=== PATIENT | male | born 1975 | race Two or more races ===

== ENCOUNTER → 2020-03-13 12:32 | Outpatient (BNVA) | payer SELFPAY | PROVIDERS: PCP Nurse Practitioner Family; Visit Provider Student in an Organized Health Care Education/Training Program | DX: M25.512 Pain in left shoulder (principal); M25.511 Pain in right shoulder; G89.29 Other chronic pain; M25.50 Pain in unspecified joint; M79.7 Fibromyalgia; R26.89 Other abnormalities of gait and mobility; R29.6 Repeated falls; Z91.81 History of falling | CPT/HCPCS: 99214 ==

== ENCOUNTER 2021-04-10 09:18 | Outpatient (REF) | payer OTHER, SELFPAY ==
--- NOTE | ~2021-04-10 | MR_ITS ---
EXAMINATION: MR BRAIN WITHOUT AND WITH CONTRAST CLINICAL INFORMATION: Seizure disorder COMPARISON: None TECHNIQUE: Multiplanar, multisequence MRI of the brain was obtained before and after the intravenous administration of 10 mL Gadavist. Seizure protocol images are obtained. FINDINGS: No intracranial hemorrhage, tumors or acute infarcts are noted. A small number scattered supratentorial subcortical punctate T2 hyperintensities are noted. The largest focus measures 3 mm in dimension is present in the inferior right frontal lobe (series 5 image 16). No perivenular lesions are noted. These findings are of uncertain clinical significance as similar findings are a frequently encountered asymptomatic finding. Susceptibility weighted images reveal no evidence of acute or chronic hemorrhage within the brain parenchyma. The craniocervical junction cerebellar tonsils are normal in appearance. No suspicious marrow abnormalities. Grossly normal flow-related signal intensity within the major intrarenal vessels and dural sinuses. Coronal seizure protocol images demonstrate no abnormalities of the hippocampal formations. No walker matter heterotopia or evidence of neuronal migrational abnormalities identified. The orbits and globes are normal in appearance. No mastoid effusions. No abnormal enhancement of the brain parenchyma. MR/MR head/brain wo/w con IMPRESSION: -Small number of scattered nonspecific nonenhancing punctate supratentorial white matter foci (T2 hyperintensities) of uncertain clinical significance. Similar findings are frequent encountered asymptomatic findings. Unenhanced and IV contrast enhanced seizure protocol images the brain are otherwise normal.
== END 2021-04-10 09:19 | disposition home or self-care (01) ==
LOC: HO.MRI 09:18
PROVIDERS: PCP Physician Assistant Medical; Visit Provider Psychiatry & Neurology Neurology
DX: G40.909 Epilepsy, unspecified, not intractable, without status epilepticus (principal)
CPT/HCPCS: 70553; A9585

== ENCOUNTER → 2022-07-12 09:00 | Outpatient (BNVA) | payer OTHER, SELFPAY | PROVIDERS: PCP Internal Medicine; Visit Provider Psychiatry & Neurology Neurology | DX: R25.2 Cramp and spasm (principal); G47.10 Hypersomnia, unspecified; R06.83 Snoring | CPT/HCPCS: 99202 ==

== ENCOUNTER → 2022-08-19 19:30 | Outpatient (REF) | payer OTHER, SELFPAY | LOC: HO.SL 19:30 | PROVIDERS: Visit Provider Psychiatry & Neurology Neurology | DX: G47.33 Obstructive sleep apnea (adult) (pediatric) (principal); G47.61 Periodic limb movement disorder | CPT/HCPCS: 95810 ==

== ENCOUNTER 2022-10-05 07:57 | Outpatient (REF) | payer MEDICAID, SELFPAY ==
--- NOTE | 2022-10-05 08:00 | EEG_ITS ---
FINDINGS: Waking background activity consists of a well-defined moderate voltage 10 hertz posterior alpha frequency that is seen symmetrically and attenuates well with eye opening on low voltage fast frequencies predominate anteriorly. During sleep, symmetrical frontal central spindles develop over both hemispheres. Photic stimulation is without activation. Hyperventilation was omitted. No focal, lateralizing, or paroxysmal discharges are seen. IMPRESSION: This waking sleepy EEG is within normal limits MD ASHLIE Price/ADALBERTO / [phone]
== END 2022-10-05 07:58 | disposition home or self-care (01) ==
LOC: HO.NEURO 07:57
PROVIDERS: PCP Internal Medicine; Visit Provider Nurse Practitioner Family
DX: R56.9 Unspecified convulsions (principal); R25.2 Cramp and spasm
CPT/HCPCS: 95816

== ENCOUNTER 2023-02-02 08:55 | Outpatient (AMB) | payer MEDICAID, SELFPAY ==
[2023-02-02 09:00] VITALS: BP 120/72; PULSE 71; O2SAT 97; BMI 26.8
--- NOTE | 2023-02-02 09:00 | MHC.OFFVIS ---
Intake Vital Signs 02/02/23 09:00 Height 5 ft 8 in Weight 176 lb 8 oz BMI 26.8 BP 120/72 Blood Pressure Location Rt brachial Position Sitting Pulse 71 Pulse Source Pulse Oximeter Pulse Oximetry (%) 97 Oxygen Delivery Method Room Air Intake Visit Reasons: 3m follow up Seizure disorder-confirmed Intake Note: Pt presents as a 3 month f/u for seizure disorder. Classroom Monitor Required: No Allergies tramadol Allergy (Severe, Verified 02/02/23 09:04) Hallucinations Gadolinium-Containing Contrast Medi Allergy (Mild, Verified 02/02/23 09:04) Rash gabapentin Adverse Reaction (Severe, Verified 02/02/23 09:04) agressive behavior Medication List - Last Reconciled 02/02/23 by Emerald Murray MD famotidine (Pepcid) 20 mg PO BEDTIME PRN hydroxyzine HCl 50 mg PO BEDTIME lidocaine 4% 1 patch topical DAILY PRN magnesium oxide 400 mg PO BEDTIME oxcarbazepine 1 tab qama nd 2 tabs qhs orally 2 times a day; HPI HPI Comments History of Present Illness Details 47y/o male comes for follow up of seizures after 6 months. His describes that the episodes of seizures are at night and generalized body cramping lasting for 30seconds or less. He wakes up after the episode and is in pain and confused. Since he was started on oxcarbamazepine his episode shave decreased in frequency and intensity 2/week and teher are weeks without episode. His sleep study showed an episode with ictal appearing waveforms during the epsidoe. Mild sleep apnea AHI 5/hr. [facility] Medical History (Updated 02/02/23 @ 09:19 by Emerald Murray MD) Anxiety Cocaine abuse Depression Heroin abuse Hypersomnia Marijuana abuse Nocturnal muscle cramp Nocturnal paroxysmal dystonia Snoring Spina bifida Surgical History History of appendectomy Family History Father Stomach cancer Prostate CA Diabetes Social History Household Members: Spouse Alcohol intake: never Patient Tobacco Use Status: Never used Tobacco Substance Use Type: Marijuana Physical Exam Vital Signs: Last Vital Signs Pulse 71 02/02/23 09:00 BP 120/72 02/02/23 09:00 Pulse Ox 97 02/02/23 09:00 Oxygen Delivery Method Room Air 02/02/23 09:00 BMI result Body Mass Index 26.8 Const General: cooperative, healthy appearing and comfortable Nutritional Appearance: average body habitus Orientation/consciousness: patient oriented x3 Limitations: no limitations HEENT Head: Yes normal to inspection and Yes normocephalic Eyes Pupils: Equal, round and reactive pupils present Neuro General: patient oriented x3, gait normal, tone normal, moves all extremities and no focal motor deficits Cranial nerves: Yes Facial sensation intact/muscles of mastication intact, Yes Equal, round and reactive pupils present, Yes Bilaterally intact EOM present, Yes Nystagmus not present, Yes Normal facial strength present, Yes Midline tongue present, Yes Symmetric palate elevation present and Yes Ability to bilaterally elevate shoulders present Cognition (Neuro): normal cognition Gait exam (Neuro): Normal gait present Motor exam (neuro): 5/5 motor strength present throughout Deep tendon reflexes (DTR's): Right triceps reflex intensity grade: 1+, Left triceps reflex intensity grade: 1+, Rt Biceps (C5, C6): 1+, Left biceps reflex intensity grade: 1+, Right brachioradialis reflex intensity grade: 1+, Left brachioradialis reflex intensity grade: 1+, Right patellar reflex intensity grade: 2+ and Left patellar reflex intensity grade: 2+ Coordination: [id number] test normal Psych Appearance: grossly normal Assessment & Plan Assessment & Plan (1) Nocturnal paroxysmal dystonia: Comment: PSG - showe rush episode with ictal wave forms and patient responded to oxcarbamazepine Code(s): G47.8 - Other sleep disorders (2) Obstructive sleep apnea: Comment: mild Code(s): G47.33 - Obstructive sleep apnea (adult) (pediatric) Plan Increase trileptal 150mg qam and 300mg qhs - discussed side effects and compliance AVoid supine sleep. will consider cloanzepam . Patient has severe intolerance to gabapentin NO DRIVING Orders: Orders Comprehensive Met. Panel 02/02/23 G47.8 - Other sleep disorders Complete Blood Count Auto Diff 02/02/23 G47.8 - Other sleep disorders Medications: Changed From oxcarbazepine 150 mg PO BID 60 tabs 6RF To oxcarbazepine 1 tab qama nd 2 tabs qhs orally 2 times a day; 90 tabs 6RF Coding Level of Care Code Est Pt Level 4 (55707) Diagnoses Nocturnal paroxysmal dystonia G47.8 Obstructive sleep apnea G47.33
== END 2023-02-02 09:25 | disposition home or self-care (01) ==
PROVIDERS: Visit Provider Psychiatry & Neurology Neurology
DX: G47.8 Other sleep disorders (principal); G47.33 Obstructive sleep apnea (adult) (pediatric)
CPT/HCPCS: 99214

== ENCOUNTER → 2023-02-02 08:55 | Outpatient (BNVA) | payer MEDICAID, SELFPAY | PROVIDERS: Visit Provider Psychiatry & Neurology Neurology | DX: G47.8 Other sleep disorders (principal); G47.33 Obstructive sleep apnea (adult) (pediatric) | CPT/HCPCS: 99212 ==

== ENCOUNTER 2023-04-11 13:16 | Outpatient (AMB) | payer OTHER, SELFPAY ==
--- NOTE | 2023-04-11 13:50 | A.OFFVIS_ITS ---
Intake Vital Signs 04/11/23 13:52 Height 5 ft 8 in Weight 195 lb BMI 29.6 BP 122/80 Blood Pressure Location Rt brachial Position Sitting Pulse 78 Pulse Source Pulse Oximeter Pulse Oximetry (%) 99 Oxygen Delivery Method Room Air Intake Visit Reasons: 2m follow up Seizure disorder/Confirmed Intake Note: Patient presents for 2 month follow up seizure.Patient states 'I've been having less attacks but I find since the medication dosage increased I've urinating a lot in the morning. Allergies tramadol Allergy (Severe, Verified 04/11/23 13:54) Hallucinations Gadolinium-Containing Contrast Medi Allergy (Mild, Verified 04/11/23 13:54) Rash gabapentin Adverse Reaction (Severe, Verified 04/11/23 13:54) agressive behavior Medication List - Last Reconciled 04/11/23 by Goyo Carter CNP famotidine (Pepcid) 20 mg PO BEDTIME PRN hydroxyzine HCl 50 mg PO BEDTIME lidocaine 4% 1 patch topical DAILY PRN magnesium oxide 400 mg PO BEDTIME oxcarbazepine 1 tab qama nd 2 tabs qhs orally 2 times a day; HPI HPI Comments History of Present Illness Details 47 y/o male comes with his for foll ow up of seizures. Pt reports that his seizure frequency has decreased a lot, had only one episode since the last visit (02/02/23). The oxcarbazepine dosage was increased to 150 mg qAM and 300 mg qHS. His describes that the episodes of seizures are at night and generalized body cramping lasting for 30 seconds or less. He wakes up after the episode and is in pain and confused. His sleep study showed an episode with ictal appearing waveforms during the episode. Mild sleep apnea AHI 5/hr. Pt reports that he has more frequent urination after his medication dosage increased. The sodium level (02/03/23) was 142 and had a repeat labs done last week and the result is pending. Pt states that he does not drive. [facility] Medical History (Updated 02/02/23 @ 09:19 by Emerald Murray MD) Nocturnal paroxysmal dystonia Hypersomnia Snoring Nocturnal muscle cramp Anxiety Depression Marijuana abuse Cocaine abuse Heroin abuse Spina bifida Surgical History History of appendectomy Family History Father Stomach cancer Prostate CA Diabetes Social History Household Members: Spouse Alcohol intake: never Patient Tobacco Use Status: Never used Tobacco Substance Use Type: Marijuana Review of Systems Const All systems reviewed & are unremarkable except as noted in HPI and below Physical Exam Vital Signs: Last Vital Signs Pulse 78 04/11/23 13:52 BP 122/80 04/11/23 13:52 Pulse Ox 99 04/11/23 13:52 Oxygen Delivery Method Room Air 04/11/23 13:52 BMI result Body Mass Index 29.6 Const General: cooperative, healthy appearing and comfortable Nutritional Appearance: average body habitus Orientation/consciousness: patient oriented x3 Limitations: no limitations HEENT Head: Yes normal to inspection and Yes normocephalic Eyes Pupils: Equal, round and reactive pupils present Neuro General: patient oriented x3, gait normal, tone normal, moves all extremities and no focal motor deficits Cranial nerves: Yes Facial sensation intact/muscles of mastication intact, Yes Equal, round and reactive pupils present, Yes Bilaterally intact EOM present, Yes Nystagmus not present, Yes Normal facial strength present, Yes Midline tongue present, Yes Symmetric palate elevation present and Yes Ability to bilaterally elevate shoulders present Cognition (Neuro): normal cognition Gait exam (Neuro): Normal gait present Motor exam (neuro): 5/5 motor strength present throughout Deep tendon reflexes (DTR's): Right triceps reflex intensity grade: 1+, Left triceps reflex intensity grade: 1+, Rt Biceps (C5, C6): 1+, Left biceps reflex intensity grade: 1+, Right brachioradialis reflex intensity grade: 1+, Left brachioradialis reflex intensity grade: 1+, Right patellar reflex intensity grade: 2+ and Left patellar reflex intensity grade: 2+ Coordination: [id number] test normal Psych Appearance: grossly normal Assessment & Plan Assessment & Plan (1) Nocturnal paroxysmal dystonia: Comment: PSG - showe rush episode with ictal wave forms and patient responded to oxcarbamazepine Code(s): G47.8 - Other sleep disorders (2) Obstructive sleep apnea: Comment: mild Code(s): G47.33 - Obstructive sleep apnea (adult) (pediatric) Plan Continue to take trileptal 150 mg qAM and 300mg qHS. Stressed compliance. Will f/u of the lab result. Avoid supine sleep. Patient has severe intolerance to gabapentin NO DRIVING Coding Level of Care Code Est Pt Level 3 (10196) Diagnoses Nocturnal paroxysmal dystonia G47.8 Obstructive sleep apnea G47.33
[2023-04-11 13:52] VITALS: BP 122/80; PULSE 78; O2SAT 99; BMI 29.6
== END 2023-04-11 14:18 | disposition home or self-care (01) ==
PROVIDERS: PCP Internal Medicine; Visit Provider Nurse Practitioner Family
DX: G47.8 Other sleep disorders (principal); G47.33 Obstructive sleep apnea (adult) (pediatric)
CPT/HCPCS: 99213

== ENCOUNTER → 2023-04-11 13:16 | Outpatient (BNVA) | payer OTHER, SELFPAY | PROVIDERS: PCP Internal Medicine; Visit Provider Nurse Practitioner Family | DX: G47.8 Other sleep disorders (principal); G47.33 Obstructive sleep apnea (adult) (pediatric); Z79.899 Other long term (current) drug therapy | CPT/HCPCS: 99212 ==

== ENCOUNTER 2023-07-14 09:46 | Outpatient (AMB) | payer OTHER, SELFPAY ==
--- NOTE | 2023-07-14 11:00 | A.OFFVIS_ITS ---
Intake Vital Signs 07/14/23 11:07 Height 5 ft 8 in Weight 208 lb 6 oz BMI 31.7 BP 122/80 Blood Pressure Location Lt brachial Position Sitting Pulse 67 Pulse Source Pulse Oximeter Pulse Oximetry (%) 98 Oxygen Delivery Method Room Air Intake Visit Reasons: 3 mo f/u Seizure - CONF Intake Note: Patient presents for 3 month f/u. still a lot of migraine Allergies tramadol Allergy (Severe, Verified 07/14/23 11:05) Hallucinations Gadolinium-Containing Contrast Medi Allergy (Mild, Verified 07/14/23 11:05) Rash gabapentin Adverse Reaction (Severe, Verified 07/14/23 11:05) agressive behavior Medication List - Last Reconciled 07/14/23 by Goyo Carter CNP famotidine (Pepcid) 20 mg PO BEDTIME PRN hydroxyzine HCl 50 mg PO BEDTIME lidocaine 4% 1 patch topical DAILY PRN magnesium oxide 400 mg PO BEDTIME nortriptyline 10 mg PO BEDTIME oxcarbazepine 1 tab qama nd 2 tabs qhs orally 2 times a day; HPI HPI Comments History of Present Illness Details 48 y/o male comes with his for foll ow up of seizures. Pt reports that No breakthrough seizure since the last visit (04/2023). He had one episode of seizure before April. He is compliant his mediation, oxcarbazepine 150 mg qAM and 300 mg qHS. His describes that the episodes of seizures are at night and generalized body cramping lasting for 10 seconds or less. He wakes up after the episode and is in pain and confused. His sleep study showed an episode with ictal appearing waveforms during the episode. Mild sleep apnea AHI 5/hr, not on CPAP. Pt reports he sleeps well. Lab result reviewed, WNL. Pt states that he does not drive, his jamilah. [facility] Medical History (Updated 02/02/23 @ 09:19 by Emerald Murray MD) Nocturnal paroxysmal dystonia Hypersomnia Snoring Nocturnal muscle cramp Anxiety Depression Marijuana abuse Cocaine abuse Heroin abuse Spina bifida Surgical History History of appendectomy Family History Father Stomach cancer Prostate CA Diabetes Social History Household Members: Spouse Alcohol intake: never Patient Tobacco Use Status: Never used Tobacco Substance Use Type: Marijuana Review of Systems Const All systems reviewed & are unremarkable except as noted in HPI and below Physical Exam Vital Signs: Last Vital Signs Pulse 67 07/14/23 11:07 BP 122/80 07/14/23 11:07 Pulse Ox 98 07/14/23 11:07 Oxygen Delivery Method Room Air 07/14/23 11:07 BMI result Body Mass Index 31.7 Const General: cooperative, healthy appearing and comfortable Nutritional Appearance: average body habitus Orientation/consciousness: patient oriented x3 Limitations: no limitations HEENT Head: Yes normal to inspection and Yes normocephalic Eyes Pupils: Equal, round and reactive pupils present Neuro General: patient oriented x3, gait normal, tone normal, moves all extremities and no focal motor deficits Cranial nerves: Yes Facial sensation intact/muscles of mastication intact, Yes Equal, round and reactive pupils present, Yes Bilaterally intact EOM present, Yes Nystagmus not present, Yes Normal facial strength present, Yes Midline tongue present, Yes Symmetric palate elevation present and Yes Ability to bilat erally elevate shoulders present Cognition (Neuro): normal cognition Gait exam (Neuro): Normal gait present Motor exam (neuro): 5/5 motor strength present throughout Deep tendon reflexes (DTR's): Right triceps reflex intensity grade: 1+, Left triceps reflex intensity grade: 1+, Rt Biceps (C5, C6): 1+, Left biceps reflex intensity grade: 1+, Right brachioradialis reflex intensity grade: 1+, Left brachioradialis reflex intensity grade: 1+, Right patellar reflex intensity grade: 2+ and Left patellar reflex intensity grade: 2+ Coordination: [id number] test normal Psych Appearance: grossly normal Assessment & Plan Assessment & Plan (1) Nocturnal paroxysmal dystonia: Comment: PSG - showe rush episode with ictal wave forms and patient responded to oxcarbamazepine Code(s): G47.8 - Other sleep disorders (2) Obstructive sleep apnea: Comment: mild Code(s): G47.33 - Obstructive sleep apnea (adult) (pediatric) Plan Continue to take trileptal 150 mg qAM and 300mg qHS. Stressed compliance. Avoid supine sleep. Patient has severe intolerance to gabapentin. NO DRIVING Coding Level of Care Code Est Pt Level 3 (25739) Diagnoses Nocturnal paroxysmal dystonia G47.8 Obstructive sleep apnea G47.33
[2023-07-14 11:07] VITALS: BP 122/80; PULSE 67; O2SAT 98; BMI 31.7
== END 2023-07-14 11:24 | disposition home or self-care (01) ==
PROVIDERS: PCP Internal Medicine; Visit Provider Nurse Practitioner Family
DX: G47.8 Other sleep disorders (principal); G47.33 Obstructive sleep apnea (adult) (pediatric)
CPT/HCPCS: 99213

== ENCOUNTER → 2023-07-14 09:46 | Outpatient (BNVA) | payer MEDICAID, SELFPAY | PROVIDERS: PCP Internal Medicine; Visit Provider Nurse Practitioner Family | DX: G47.33 Obstructive sleep apnea (adult) (pediatric) (principal); G47.8 Other sleep disorders | CPT/HCPCS: 99212 ==

== ENCOUNTER 2023-10-20 12:38 | Outpatient (AMB) | payer MEDICAID, SELFPAY ==
--- NOTE | 2023-10-20 12:44 | MHC.OFFVIS ---
Vital Signs 10/20/23 12:45 Height 5 ft 8 in Weight 208 lb BMI 31.6 BP 128/88 Blood Pressure Location Rt brachial Position Sitting Pulse 77 Pulse Source Pulse Oximeter Pulse Oximetry (%) 98 Oxygen Delivery Method Room Air Intake Visit Reasons: 6m f/u Seizure Intake Note: Patient presents for 6 month follow up seizure. Patient having a lot of headaches lately to the point he's bending over in pain even straining in the bathroom he gets light headed. Allergies tramadol Allergy (Severe, Verified 10/20/23 12:54) Hallucinations Gadolinium-Containing Contrast Medi Allergy (Mild, Verified 10/20/23 12:54) Rash gabapentin Adverse Reaction (Severe, Verified 10/20/23 12:54) agressive behavior Medication List - Last Reconciled 10/20/23 by LIZZETH Chua famotidine (Pepcid) 20 mg PO BEDTIME PRN hydroxyzine HCl 50 mg PO BEDTIME lidocaine 4% 1 patch topical DAILY PRN magnesium oxide 400 mg PO BEDTIME nortriptyline 10 mg PO BEDTIME oxcarbazepine 1 tab qama nd 2 tabs qhs orally 2 times a day; HPI Comments Details: 48-yr-old male presents for f/u visit, accompanied by his partner. Pt reports he is having a new headache triggered by having a bowel movement. This started out of the blue 9 days ago. Pt was having a BM, when he felt a swelling pressure building up into a pounding severe headache- like he had been hit) from the parietal region and into bilateral temples, more severe on the right. He states he just had to close his eyes and the attcak a/w mild photopphobia, off-balance/dizziness, blurry vision, horizontal diplopia. Post-attack, he felt more tired. The headache peaked to severity within 30-60 seconds and lasts 3-5 minutes. He has had 6 of these attacks in the last 9 days. All attacks triggered by having a BM or sexual activity. He did not seek medical attention for this. H ehas a h/o headache- but has never had a headache like this before. He has noticed bilateral tinnitus- sound like a plan a plane passing- started 3-4 weeks ago. Pt states he had a GI illness 2 weeks ago- but no fever, self-resolved. Denies recent fevers, accidents, right lateral and medial chest pain upon palpation, usual SOB. Sometimes uses marijuana prn for fibromyalgia pain- states there was no change in his marijuana or supplier. His last seizure-like episode was 2 days ago. He is having 6 episodes per month. The seizures are shorter than they used to be. He used to have daily seizures. [facility] Medical History (Updated 10/20/23 @ 15:25 by LIZZETH Chua) Nocturnal paroxysmal dystonia Hypersomnia Snoring Nocturnal muscle cramp Anxiety Depression Marijuana abuse Cocaine abuse Heroin abuse Spina bifida Surgical History History of appendectomy Family History Father Stomach cancer Prostate CA Diabetes Social History Household Members: Spouse Alcohol intake: never Patient Tobacco Use Status: Never used Tobacco Substance Use Type: Marijuana Physical Exam Vital Signs: Last Vital Signs Pulse 77 10/20/23 12:45 BP 128/88 10/20/23 12:45 Pulse Ox 98 10/20/23 12:45 Oxygen Delivery Method Room Air 10/20/23 12:45 BMI result Body Mass Index 31.6 Const General: cooperative and no acute distress Orientation/consciousness: patient oriented x3 Resp Effort & Inspection: normal respiratory effort and able to speak in complete sentences Auscultation: clear to auscultation bilaterally Cardio Rate: regular rate Rhythm: regular rhythm Heart sounds: S1 normal heart sound present and S2 normal heart sound present Peripheral pulses: radial pulses present bilateral 2+ Neuro Other: EOM elicits mild dizziness Color perception intact. General: patient oriented x3 Cranial nerves: Yes CN's II-XII intact bilaterally (w/ exception of very mild facial asymmetry- chronic per old photos) Cognition (Neuro): normal cognition Psych Appearance: grossly normal Mental Status: mental status grossly normal Speech and movement: Normal speech and movement present Affect: normal affect Attitude: cooperative Assessment & Plan Assessment & Plan (1) Thunderclap headache: Comment: new onset started 9 days ago- triggered by BM and sexual activity. DDx arterial dissection, RCVS, intracranial stenosis/thrombosis/ vasculitis, infection. Code(s): G44.53 - Primary thunderclap headache Category: Medical (2) Nocturnal muscle cramp: Comment: episodic with change in mental status - ? frontal seizures( the episodes are too short ), ? paroxysmal dyskinesia Code(s): R25.2 - Cramp and spasm Category: Medical (3) Nocturnal paroxysmal dystonia: Comment: PSG - showe rush episode with ictal wave forms and patient responded to oxcarbamazepine Code(s): G47.8 - Other sleep disorders Category: Medical Plan Pt advised to go to ER to evaluate new onset thunderclap type headache to rule-out secondary CV etiologies, pt declines. Advised if he has another attack while the work-up below is pending, he should go to the ER. Avoid heavy lifting or sexual activity. Pt advised to undergo Labs- pt will do today Stat CT Head Stat CTA Head and Neck Stat/urgent Brain MRI w/wo Upon review of above- consider LP. Continue Oxcarbazepine. Case discussed w/ Dr Emerald Murray. f/u upon review of above. Orders: Orders CT head for stroke Today G44.53 - Primary thunderclap headache, G47.10 - Hypersomnia, unspecified, G47.8 - Other sleep disorders, R56.9 - Unspecified convulsions CT angio head neck stroke Today G44.53 - Primary thunderclap headache, G47.10 - Hypersomnia, unspecified, G47.8 - Other sleep disorders, R56.9 - Unspecified convulsions Erythrocyte Sedimentation Rate Today G44.53 - Primary thunderclap headache, G47.10 - Hypersomnia, unspecified, G47.8 - Other sleep disorders, R56.9 - Unspecified convulsions TSH reflex Free T4 Today G44.53 - Primary thunderclap headache, G47.10 - Hypersomnia, unspecified, G47.8 - Other sleep disorders, R56.9 - Unspecified convulsions STEVEN Reflex Titer and Pattern Today G44.53 - Primary thunderclap headache, G47.10 - Hypersomnia, unspecified, G47.8 - Other sleep disorders, R56.9 - Unspecified convulsions Rheumatoid Factor Today G44.53 - Primary thunderclap headache, G47.10 - Hypersomnia, unspecified, G47.8 - Other sleep disorders, R56.9 - Unspecified convulsions MR head/brain wo/w con Today G44.53 - Primary thunderclap headache, G47.10 - Hypersomnia, unspecified, G47.8 - Other sleep disorders, R56.9 - Unspecified convulsions Complete Blood Count Auto Diff Today G44.53 - Primary thunderclap headache, G47.10 - Hypersomnia, unspecified, G47.8 - Other sleep disorders, R56.9 - Unspecified convulsions Comprehensive Met. Panel Today G44.53 - Primary thunderclap headache, G47.10 - Hypersomnia, unspecified, G47.8 - Other sleep disorders, R56.9 - Unspecified convulsions CRP High Sensitivity Today G44.53 - Primary thunderclap headache, G47.10 - Hypersomnia, unspecified, G47.8 - Other sleep disorders, R56.9 - Unspecified convulsions Coding Level of Care Code Est Pt Level 4 (93835) Diagnoses Thunderclap headache G44.53 Nocturnal muscle cramp R25.2 Nocturnal paroxysmal dystonia G47.8
[2023-10-20 12:45] VITALS: BP 128/88; PULSE 77; O2SAT 98; BMI 31.6
== END 2023-10-20 14:03 | disposition home or self-care (01) ==
PROVIDERS: Absent Provider Nurse Practitioner Family; PCP Internal Medicine; Visit Provider Nurse Practitioner Family
DX: G44.53 Primary thunderclap headache (principal); R25.2 Cramp and spasm; G47.8 Other sleep disorders
CPT/HCPCS: 99214

== ENCOUNTER → 2023-10-20 12:38 | Outpatient (BNVA) | payer MEDICAID, SELFPAY | PROVIDERS: Absent Provider Nurse Practitioner Family; PCP Internal Medicine; Visit Provider Nurse Practitioner Family | DX: G44.53 Primary thunderclap headache (principal); G47.8 Other sleep disorders; R25.2 Cramp and spasm | CPT/HCPCS: 99212 ==

== ENCOUNTER 2023-10-20 14:08 | Outpatient (REF) | payer MEDICAID, SELFPAY ==
[2023-10-20 19:53] LABS: MANUAL DIFF FLAG NO
[2023-10-20 19:57] LABS: Basophils Percent Auto 0.3 % (0-2); Eosinophils Absolute Auto 0.3 X10*3/uL (0.0-0.4); Eosinophils Percent Auto 2.6 % (0-4); Hematocrit 48.2 % (42.0-52.0); Hemoglobin 15.9 g/dl (14.0-18.0); Imm Gran Abs Auto 0.06 X10*3/uL (0.00-0.03); Imm Gran Pct Auto 0.5 % (0.0-0.4); Lymphocytes Absolute Auto 1.2 X10*3/uL (1.2-4.9); Lymphocytes Percent Auto 10.4 % (20-40); Mean Corpuscular Hemoglobin 26.3 pg (27.0-33.0); Mean Corpuscular Volume 79.8 fL (80.0-98.0); Mean Platelet Volume 11.5 fL (9.4-12.4); Monocytes Absolute Auto 1.1 X10*3/uL (0.1-1.2); Monocytes Percent Auto 9.2 % (2-11); Neutrophils Absolute Auto 9.2 x10*3/uL (2.0-8.3); Platelet Count 244 X10*3/uL (160-400); Red Blood Count 6.04 X10*6/uL (4.60-5.80); Red Cell Distribution Width 14.9 % (11.0-16.0); White Blood Count 11.9 X10*3/uL (4.8-10.8)
[2023-10-20 20:12] LABS: Alanine Aminotransferase 35 U/L (0-40); Albumin Level 4.8 g/dL (3.5-5.0); Alkaline Phosphatase 93 U/L (39-117); Anion Gap 13 (12-20); Aspartate Amino Transferase 31 U/L (5-37); Bilirubin Total 0.5 mg/dL (0.0-1.0); Blood Urea Nitrogen 14 mg/dL (9-16); Calcium 9.5 mg/dL (8.4-10.2); Carbon Dioxide 22 mmol/L (22-29); Chloride 106 mmol/L (96-108); Estimated Glomerular Filt Rate > 60; Glucose Random 92 mg/dL (60-115); Potassium 4.1 mmol/L (3.3-5.1); Sodium 137 mmol/L (135-145); Total Protein 8.1 g/dL (6.5-8.0)
[2023-10-20 20:19] LABS: Rheumatoid Factor < 13.0 IU/mL (<15.0)
[2023-10-20 20:26] LABS: TSH reflex Free T4 0.66 uIU/mL (0.32-4.0)
[2023-10-20 20:47] LABS: Erythrocyte Sedimentation Rate 2 MM/HR (0-15)
[2023-10-24 14:19] LABS: CRP High Sensitivity 11.9 mg/L
[2023-10-25 13:48] LABS: Anti Nuclear Antibody Screen NEGATIVE (NEGATIVE)
== END 2023-10-20 14:09 | disposition home or self-care (01) ==
LOC: HO.HKASLDS 14:08
PROVIDERS: Visit Provider Nurse Practitioner Family
DX: G44.53 Primary thunderclap headache (principal); R56.9 Unspecified convulsions; G47.8 Other sleep disorders; G47.10 Hypersomnia, unspecified
CPT/HCPCS: 36415; 80053; 84443; 85025; 85652; 86038; 86141; 86431; 99212

== ENCOUNTER 2023-10-28 09:11 | Outpatient (REF) | payer MEDICAID, SELFPAY ==
--- NOTE | ~2023-10-28 | MR_ITS ---
EXAMINATION: MR BRAIN WITHOUT AND WITH CONTRAST CLINICAL INFORMATION: thunderclap headache COMPARISON: MRI brain on 04/10/2021 TECHNIQUE: Multiplanar, multisequence MRI of the brain was obtained before and after the intravenous administration of 10 mL Gadavist. FINDINGS: No acute intracranial hemorrhage or infarct. Several scattered periventricular and deep white matter T2/FLAIR hyperintensities. No abnormal intraparenchymal enhancement. No midline shift or hydrocephalus. No acute extra-axial fluid collections. The osseous structures are unremarkable. The pituitary gland, pineal gland and remaining midline structures are unremarkable. No orbital pathology. The paranasal sinuses and mastoid air cells are clear. MR/MR head/brain wo/w con IMPRESSION: -No acute intracranial abnormalities. -Nonspecific scattered periventricular and deep white matter T2/FLAIR hyperintensities.
[2023-10-28] MEDS: gadobutroL 10 ML VIAL IVPUSH (10:44)
== END 2023-10-28 09:12 | disposition home or self-care (01) ==
LOC: HO.MRI 09:11
PROVIDERS: PCP Internal Medicine; Visit Provider Nurse Practitioner Family
DX: G44.53 Primary thunderclap headache (principal); R56.9 Unspecified convulsions; G47.8 Other sleep disorders; G47.10 Hypersomnia, unspecified
CPT/HCPCS: 70553; A9585

== ENCOUNTER 2023-11-17 11:09 | Outpatient (REF) | payer MEDICAID, SELFPAY ==
--- NOTE | ~2023-11-17 | CT_ITS ---
CT ANGIOGRAM NECK WITH CONTRAST CT ANGIOGRAM BRAIN WITH CONTRAST CLINICAL INFORMATION: Primary thunderclap headache COMPARISON: None. TECHNIQUE: Test bolus sequences followed by intravenous administration 70 mL of Omnipaque 350. Helical imaging was performed in the axial plane from the thoracic inlet to the skull vertex. Delayed postcontrast imaging of the head was also performed. The data was processed at the fish technologist workstation for generation of MIP sequences. Angled MIPs and volume rendered reformatted images were also generated at an offline 3D workstation under concurrent supervision. Stenoses are assessed in accordance with NASCET criteria unless otherwise indicated. This CT examination was performed using dose optimization techniques as appropriate, variously including the following: *Automated exposure control *Adjustment of mA and/or kV according to patient size (this includes techniques or standardized protocols for targeted exams where dose is matched to indication/reason for exam; i.e. extremities or head) *Use of iterative reconstruction technique FINDINGS: BRAIN: [There is no intracranial hemorrhage, hydrocephalus, extra-axial surface collection, midline shift, or other herniation pattern. Somers to white matter differentiation is diffusely maintained without evidence of an evolved acute territorial infarct. The basilar cisterns are preserved. No significant soft tissue abnormality. No acute osseous abnormality. The paranasal sinuses and the mastoid air cells are well aerated.] CERVICAL SOFT TISSUES AND LUNG APICES: There are a few nonspecific coarse calcifications within the thyroid. No significant soft tissue findings within the neck. Imaged upper lungs are clear. No acute osseous findings. NECK CTA: [There is a classic 3 vessel configuration of the aortic arch. Proximal arch vessels are non-stenotic. The vertebral arteries are codominant. No significant ostial stenosis is visualized on either side. Both vertebral arteries are widely patent throughout their extracranial cervical course. Both common and internal carotid arteries are normal in course and caliber.] BRAIN CTA: [There is normal opacification of major intracranial arteries. No focal flow-limiting stenosis nor discrete proximal large artery occlusion. No aneurysm. Timing of the contrast bolus allows assessment of the major dural venous sinuses, which all opacify normally] CT/CT angio head neck IMPRESSION: Unremarkable CTA of the head and neck.
[2023-11-17] MEDS: iohexoL 350 MG/ML 100 ML INFUS..BTL 70 ML IV (11:48)
== END 2023-11-17 11:10 | disposition home or self-care (01) ==
LOC: HO.CT 11:09
PROVIDERS: PCP Internal Medicine; Visit Provider Nurse Practitioner Family
DX: G44.53 Primary thunderclap headache (principal); R56.9 Unspecified convulsions; G47.8 Other sleep disorders
CPT/HCPCS: 70496; 70498; Q9967

== ENCOUNTER 2024-05-10 12:46 | Outpatient (AMB) | payer MEDICAID, SELFPAY ==
--- NOTE | 2024-05-10 13:00 | A.OFFVIS_ITS ---
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: No Accompanied by: Spouse Allergies tramadol Allergy (Severe, Verified 05/10/24 13:04) Hallucinations Gadolinium-Containing Contrast Medi Allergy (Mild, Verified 05/10/24 13:04) Rash gabapentin Adverse Reaction (Severe, Verified 05/10/24 13:04) agressive behavior Medication List - Last Reconciled 05/10/24 by LIZZETH Chua cyclobenzaprine 5 - 10 mg (1 - 2 x 5 mg) PO BID PRN 30 days famotidine (Pepcid) 20 mg PO BEDTIME PRN hydroxyzine HCl 50 mg PO BEDTIME lidocaine 4% 1 patch topical DAILY PRN magnesium oxide 400 mg PO BEDTIME oxcarbazepine 300 mg (2 x 150 mg) PO BEDTIME 30 days riboflavin (vitamin B2) 400 mg PO DAILY 30 days sumatriptan succinate 50 - 100 mg orally at onset of headache, may repeat in 2 hrs PRN; max 2 tabs per day or 4 tabs/week (may take with Tylenol) 30 days topiramate 1 tab bid x's 2 weeks, then 2 tabs bid orally 2 times a day; 30 days Do you need a note to return to daycare/school/sports/work: No HPI Comments Details: 49-yr-old male presents for f/u visit for seizure and headache. Patient is ac companied by his partner. Since the last visit, patient underwent brain MRI and follow-up brain MRA which were unremarkable. He reports that his headaches are better. Pressure headache a/w mild photophobia, off-balance/dizziness, blurry vision, horizontal diplopia with postdrome of fatigue. Now when he starts to have a headache, he tries to take sumatriptan which helps. Pt reports his last seizure was last week. They feel this was triggered by increased stress after he had a disagreement with her granddtr that he and his are caring for. He states the seizure feels like a full pressure/fire sensation coming over his head, he yells, his eyes roll back, head pulls back, his body will jump and his arms and legs shake, twice he has had urinary incontinence, he has never bit his tongue. If he can, he tries to sit down. He denies LOC, however he cannot speak or move. These last up to 3-4 minutes. He tries to suppress it, but cannot suppress it. His episodes are always stereotypic of each other. Patient notes that his seizures have never been captured on EEG, however ictal activity was seen on an in-lab sleep study. He was previously told that they were psychogenic, however he does not understand why someone would think that he would be wanting to have these episodes. Prior to starting Trileptal, patient had daily seizure-like episodes, and now these are much less frequent. Patient does note that he is often feeling very cold lately 10/2023,MR/MR head/brain wo/w con IMPRESSION: -No acute intracranial abnormalities. -Nonspecific scattered periventricular and deep white matter T2/FLAIR hyperintensities. 11/17/2023, CT/CT angio head neck IMPRESSION: Unremarkable CTA of the head and neck. [facility], [facility] Medical History (Updated 05/10/24 @ 21:19 by LIZZETH Chua) Nocturnal paroxysmal dystonia Hypersomnia Snoring Nocturnal muscle cramp Anxiety Depression Marijuana abuse Cocaine abuse Heroin abuse Spina bifida Surgical History History of appendectomy Family History Father Stomach cancer Prostate CA Diabetes Social History Household Members: Spouse Alcohol intake: never Patient Tobacco Use Status: Never used Tobacco Substance Use Type: Marijuana Physical Exam Vital Signs: Last Vital Signs Pulse 64 05/10/24 13:03 BP 120/80 05/10/24 13:03 Pulse Ox 97 05/10/24 13:03 Oxygen Delivery Method Room Air 05/10/24 13:03 Const General: cooperative and no acute distress Orientation/consciousness: patient oriented x3 Resp Effort & Inspection: normal respiratory effort and able to speak in complete sentences Neuro General: patient oriented x3 Cranial nerves: Yes CN's II-XII intact bilaterally (w/ exception of very mild facial asymmetry- chronic per old photos) Cognition (Neuro): normal cognition Psych Appearance: grossly normal Mental Status: mental status grossly normal Speech and movement: Normal speech and movement present Affect: normal affect Attitude: cooperative Assessment & Plan Assessment & Plan (1) Thunderclap headache: Comment: Improve. Code(s): G44.53 - Primary thunderclap headache Category: Medical (2) Migraine with aura: Code(s): G43.109 - Migraine with aura, not intractable, without status migrainosus Category: Medical (3) Nocturnal muscle cramp: Comment: episodic with change in mental status - ? frontal seizures( the episodes are too short ), ? paroxysmal dyskinesia Code(s): R25.2 - Cramp and spasm Category: Medical (4) Nocturnal paroxysmal dystonia: Comment: PSG - showed an episode with ictal wave forms and patient responded to oxcarbamazepine Code(s): G47.8 - Other sleep disorders Category: Medical Plan For headache: Reviewed interval workup: -Nonspecific scattered periventricular and deep white matter T2/FLAIR hyperintensities. No evidence of inter or extracranial arterial aneurysm, dissection. Headaches have improved with recognition of treating headache at onset of headache with sumatriptan. Continue Trial Sumatriptan 100mg tab, 1/2 - 1 tab (50-100mg) at onset of headache, may repeat in 2 hours. Max of 2 tabs (200mg) per 24 hours. May take sumatriptan with OTC Tylenol 650-1,000mg every 4-6 hours, Ibuprofen (liquid gels) 600mg every 6 hours, or Naproxen (liquid gels) 440mg q 12 hrs prn. Trial Topiramate 25 mg b.i.d. x2 weeks then increase to 50 mg b.i.d.- in hopes this reduces migraine headache burden and reduces risk for seizure activity.. Potential adverse effects of Topiramate, include but are not limited to fatigue, cognitive changes, paresthesias (tingling), vision changes, kidney stones. Start riboflavin 400 mg q.a.m. Continue magnesium oxide 400 mg q.h.s. For seizure activity: Continue Oxcarbazepine 300mg qhs- patient states he can not take during the day as it makes him too sleepy. Check labs, will include labs for symptoms of cold intolerance Will follow-up upon review of above and patient to follow-up in clinic in 6 months or sooner prn. Orders: Orders Vitamin B12 and Folate Today D64.9 - Anemia, unspecified, E55.9 - Vitamin D deficiency, unspecified Homocysteine Today D64.9 - Anemia, unspecified, E55.9 - Vitamin D deficiency, unspecified Methylmalonic Acid Today D64.9 - Anemia, unspecified, E55.9 - Vitamin D deficiency, unspecified Vitamin D 25-OH (D2 and D3) Today D64.9 - Anemia, unspecified, E55.9 - Vitamin D deficiency, unspecified Complete Blood Count Auto Diff Today R56.9 - Unspecified convulsions Comprehensive Met. Panel Today R56.9 - Unspecified convulsions Folate Today D64.9 - Anemia, unspecified, E55.9 - Vitamin D deficiency, unspecified IRON PROFILE Today D64.9 - Anemia, unspecified, E55.9 - Vitamin D deficiency, unspecified Ferritin Today D64.9 - Anemia, unspecified, E55.9 - Vitamin D deficiency, unspecified Medications: New topiramate 1 tab bid x's 2 weeks, then 2 tabs bid orally 2 times a day; 120 tabs 3RF 30 days riboflavin (vitamin B2) 400 mg PO DAILY 30 tabs 6RF 30 days Changed From oxcarbazepine 1 tab qama nd 2 tabs qhs orally 2 times a day; 90 tabs 6RF To oxcarbazepine 300 mg (2 x 150 mg) PO BEDTIME 60 tabs 6RF 30 days Refilled magnesium oxide 400 mg PO BEDTIME 30 caps 6RF sumatriptan succinate 50 - 100 mg orally at onset of headache, may repeat in 2 hrs PRN; max 2 tabs per day or 4 tabs/week (may take with Tylenol) 12 tabs 6RF migraine headache 30 days Discontinued prednisone Discontinued Reason: Patient Completed Course 50 mg orally 1 tab 13 hrs before MRI, then 7 hrs before MRI, and 1 hr before MRI; 1 day 3 tabs 0RF Coding Level of Care Code Est Pt Level 4 (36645) Diagnoses Thunderclap headache G44.53 Migraine with aura G43.109 Nocturnal muscle cramp R25.2 Nocturnal paroxysmal dystonia G47.8
[2024-05-10 13:03] VITALS: BP 120/80; PULSE 64; O2SAT 97
== END 2024-05-10 14:42 | disposition home or self-care (01) ==
PROVIDERS: PCP Internal Medicine; Visit Provider Nurse Practitioner Family
DX: G44.53 Primary thunderclap headache (principal); G43.109 Migraine with aura, not intractable, without status migrainosus; R25.2 Cramp and spasm; G47.8 Other sleep disorders
CPT/HCPCS: 99214

== ENCOUNTER → 2024-05-10 12:46 | Outpatient (BNVA) | payer MEDICAID, SELFPAY | PROVIDERS: PCP Internal Medicine; Visit Provider Nurse Practitioner Family | DX: G44.53 Primary thunderclap headache (principal); G43.109 Migraine with aura, not intractable, without status migrainosus; R25.2 Cramp and spasm; G47.8 Other sleep disorders; R56.9 Unspecified convulsions; D64.9 Anemia, unspecified; E55.9 Vitamin D deficiency, unspecified | CPT/HCPCS: 99212 ==

== ENCOUNTER 2024-05-18 09:38 | Outpatient (REF) | payer MEDICAID, SELFPAY ==
[2024-05-18 09:58] LABS: MANUAL DIFF FLAG NO
[2024-05-18 10:29] LABS: Basophils Percent Auto 0.4 % (0-2); Eosinophils Absolute Auto 0.2 X10*3/uL (0.0-0.4); Eosinophils Percent Auto 2.6 % (0-4); Hematocrit 46.1 % (42.0-52.0); Hemoglobin 15.3 g/dl (14.0-18.0); Imm Gran Abs Auto 0.04 X10*3/uL (0.00-0.03); Imm Gran Pct Auto 0.5 % (0.0-0.4); Mean Corpuscular HGB Conc 33.2 g/dl (31.0-36.0); Mean Corpuscular Hemoglobin 26.7 pg (27.0-33.0); Mean Corpuscular Volume 80.3 fL (80.0-98.0); Mean Platelet Volume 10.7 fL (9.4-12.4); Monocytes Absolute Auto 0.8 X10*3/uL (0.1-1.2); Monocytes Percent Auto 9.4 % (2-11); Neutrophils Absolute Auto 5.3 x10*3/uL (2.0-8.3); Neutrophils Percent Auto 63.1 % (45-73); Platelet Count 251 X10*3/uL (160-400); Red Blood Count 5.74 X10*6/uL (4.60-5.80); White Blood Count 8.3 X10*3/uL (4.8-10.8)
[2024-05-18 11:26] LABS: Ferritin 141 ng/mL (20-250)
[2024-05-18 11:27] LABS: Anion Gap 12 (12-20)
[2024-05-18 11:30] LABS: Folate 10.9 ng/mL (> or = 4.0); Vitamin B12 371 pg/mL (200-900)
[2024-05-18 11:32] LABS: Alanine Aminotransferase 33 U/L (0-40); Albumin Level 4.6 g/dL (3.5-5.0); Alkaline Phosphatase 101 U/L (39-117); Aspartate Amino Transferase 26 U/L (5-37); Bilirubin Total 0.4 mg/dL (0.0-1.0); Blood Urea Nitrogen 14 mg/dL (9-16); Calcium 9.7 mg/dL (8.4-10.2); Carbon Dioxide 23 mmol/L (22-29); Chloride 108 mmol/L (96-108); Estimated Glomerular Filt Rate > 60; Glucose Random 112 mg/dL (60-115); Iron 86 mcg/dL (45-160); Percent Iron Saturation 29 % (15-50); Potassium 4.1 mmol/L (3.3-5.1); Sodium 139 mmol/L (135-145); Total Iron Binding Capacity 299 mcg/dL (228-428); Total Protein 7.8 g/dL (6.5-8.0); Unsaturated Iron Binding 213 ug/dL
[2024-05-19 18:39] LABS: Homocysteine 10.7 umol/L (<11.4)
[2024-05-23 16:18] LABS: Vitamin D 25-OH, D2 <4 ng/mL; Vitamin D 25-OH, D3 20 ng/mL; Vitamin D 25-OH, Total 20 ng/mL (30-100)
[2024-05-24 09:44] LABS: Methylmalonic Acid 105 nmol/L (55-335)
== END 2024-05-18 09:39 | disposition home or self-care (01) ==
LOC: HO.LAB 09:38
PROVIDERS: PCP Internal Medicine; Visit Provider Nurse Practitioner Family
DX: E55.9 Vitamin D deficiency, unspecified (principal); D64.9 Anemia, unspecified; R56.9 Unspecified convulsions
CPT/HCPCS: 36415; 80053; 82306; 82607; 82728; 82746; 83090; 83540; 83921; 85025

== ENCOUNTER 2024-07-31 09:11 | Outpatient (AMB) | payer MEDICAID, SELFPAY ==
--- NOTE | 2024-07-31 09:19 | MHC.OFFVIS ---
Vital Signs 07/31/24 09:21 Height 5 ft 8 in Weight 213 lb BMI 32.4 BP 120/84 Blood Pressure Location Rt brachial Position Sitting Pulse 67 Pulse Source Pulse Oximeter Pulse Oximetry (%) 98 Intake Visit Reasons: f/u appt Intake Note: Patient presents follow up migraine. 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: No Allergies tramadol Allergy (Severe, Verified 07/31/24 09:22) Hallucinations Gadolinium-Containing Contrast Medi Allergy (Mild, Verified 07/31/24 09:22) Rash gabapentin Adverse Reaction (Severe, Verified 07/31/24 09:22) agressive behavior Medication List - Last Reconciled 07/31/24 by LIZZETH Chua amlodipine 5 mg PO DAILY cholecalciferol (vitamin D3) 25 mcg PO DAILY 30 days cyclobenzaprine 5 - 10 mg (1 - 2 x 5 mg) PO BID PRN 30 days famotidine (Pepcid) 20 mg PO BEDTIME PRN hydroxyzine HCl 50 mg PO BEDTIME lidocaine 4% 1 patch topical DAILY PRN magnesium oxide 400 mg PO BEDTIME oxcarbazepine 300 mg (2 x 150 mg) PO BEDTIME 30 days phenytoin sodium extended 300 mg PO BEDTIME propranolol 10 mg PO BID PRN 30 days propranolol ER 60 mg PO BEDTIME 30 days riboflavin (vitamin B2) 400 mg PO DAILY 30 days sumatriptan succinate 50 - 100 mg orally at onset of headache, may repeat in 2 hrs PRN; max 2 tabs per day or 4 tabs/week (may take with Tylenol) 30 days topiramate 1 tab bid x's 2 weeks, then 2 tabs bid orally 2 times a day; 30 days HPI Comments Details: History of Present Illness The patient is a 49-year-old male presenting with worsening headaches and associated neurological symptoms. He is accompanied by his partner. He experiences migraine with aura, typically right-sided, now predominantly left-sided. Symptoms worsened in the past week, leading to an ER visit with high blood pressure and an unresponsive episode. New orgasmic headaches accompany sexual climax. Migraines persist despite titration of topiramate and sumatriptan. Interventions have shown varied effectiveness. Review of Systems - Neurological: Reports visual disturbances, blue and white flashes, light sensitivity, dizziness, and aura. - Cardiovascular: Reports high blood pressure related to pain intensity. Call 10/2023 follow-up HPI: Since the last visit, patient underwent brain MRI and follow-up brain MRA which were unremarkable. He reports that his headaches are better. Pressure headache a/w mild photophobia, off-balance/dizziness, blurry vision, horizontal diplopia with postdrome of fatigue. Now when he starts to have a headache, he tries to take sumatriptan which helps. Pt reports his last seizure was last week. They feel this was triggered by increased stress after he had a disagreement with her granddtr that he and his are caring for. He states the seizure feels like a full pressure/fire sensation coming over his head, he yells, his eyes roll back, head pulls back, his body will jump and his arms and legs shake, twice he has had urinary incontinence, he has never bit his tongue. If he can, he tries to sit down. He denies LOC, however he cannot speak or move. These last up to 3-4 minutes. He tries to suppress it, but cannot suppress it. His episodes are always stereotypic of each other. Patient notes that his seizures have never been captured on EEG, however ictal activity was seen on an in-lab sleep study. He was previously told that they were psychogenic, however he does not understand why someone would think that he would be wanting to have these episodes. Prior to starting Trileptal, patient had daily seizure-like episodes, and now these are much less frequent. Patient does note that he is often feeling very cold lately 10/2023,MR/MR head/brain wo/w con IMPRESSION: -No acute intracranial abnormalities. -Nonspecific scattered periventricular and deep white matter T2/FLAIR hyperintensities. 11/17/2023, CT/CT angio head neck IMPRESSION: Unremarkable CTA of the head and neck. [facility] Medical History (Updated 05/10/24 @ 21:19 by LIZZETH Chua) Nocturnal paroxysmal dystonia Hypersomnia Snoring Nocturnal muscle cramp Anxiety Depression Marijuana abuse Cocaine abuse Heroin abuse Spina bifida Surgical History History of appendectomy Family History Father Stomach cancer Prostate CA Diabetes Social History Household Members: Spouse Alcohol intake: never Patient Tobacco Use Status: Never used Tobacco Substance Use Type: Marijuana Physical Exam Vital Signs: Last Vital Signs Pulse 67 07/31/24 09:21 BP 120/84 07/31/24 09:21 Pulse Ox 98 07/31/24 09:21 BMI result Body Mass Index 32.4 Const General: cooperative and no acute distress Orientation/consciousness: patient oriented x3 Resp Effort & Inspection: normal respiratory effort and able to speak in complete sentences Neuro General: patient oriented x3 Cranial nerves: Yes CN's II-XII intact bilaterally (w/ exception of very mild facial asymmetry- chronic per old photos) Cognition (Neuro): normal cognition Psych Appearance: grossly normal Mental Status: mental status grossly normal Speech and movement: Normal speech and movement present Affect: normal affect Attitude: cooperative Assessment & Plan Assessment & Plan (1) Thunderclap headache: Comment: Improve. Code(s): G44.53 - Primary thunderclap headache Category: Medical (2) Migraine with aura: Code(s): G43.109 - Migraine with aura, not intractable, without status migrainosus Category: Medical (3) Nocturnal muscle cramp: Comment: episodic with change in mental status - ? frontal seizures( the episodes are too short ), ? paroxysmal dyskinesia Code(s): R25.2 - Cramp and spasm Category: Medical (4) Nocturnal paroxysmal dystonia: Comment: PSG - showed an episode with ictal wave forms and patient responded to oxcarbamazepine Code(s): G47.8 - Other sleep disorders Category: Medical Plan Discussion Notes I discussed the newly recommended treatment, particularly the addition of propranolol to mitigate migraine and potential orgasmic headaches. The patient was informed of propranolol's benefits, including migraine prevention and blood pressure regulation. I provided immediate-release propranolol for use before sexual activity to prevent associated headaches, acknowledging potential adjustments to other medications as needed. We discussed regular follow-ups, monitoring side effects, and ensuring the patient seeks immediate care if symptoms worsen. I also emphasized careful transitioning to a warmer climate for fibromyalgia relief and maintaining healthcare continuity in [place]. Patient was informed and verbally consented to the use of an ambient scribe for clinic note documentation during this visit. Plan and patient instructions: For overall headache treatment/management: Reviewed previous workup: -Nonspecific scattered periventricular and deep white matter T2/FLAIR hyperintensities. No evidence of inter or extracranial arterial aneurysm, dissection. - Monitor blood pressure regularly and seek care if episodes of high blood pressure or severe headache occur. - Engage in slow-paced, low-impact exercises to manage fibromyalgia pain. - if patient does decide to move back to [place], Consider transitioning care to [facility] healthcare providers before moving. - Notify healthcare providers of any changes in headache patterns or new symptoms promptly. For acute migraine/orgasmic headache treatment: Trial propranolol IR 10 mg p.o. twice a day, to 1 hour prior to sexual activity to prevent orgasmic headache. Continue Sumatriptan 100mg tab, 1/2 - 1 tab (50-100mg) at onset of headache, may repeat in 2 hours. Max of 2 tabs (200mg) per 24 hours. May take sumatriptan with OTC Tylenol 650-1,000mg every 4-6 hours, Ibuprofen (liquid gels) 600mg every 6 hours, or Naproxen (liquid gels) 440mg q 12 hrs prn. For migraine prevention: Start propranolol ER 60 mg daily at bedtime-a help BP control and prevent orgasmic headache as well. Continue Topiramate 50 mg b.i.d.- in hopes this reduces migraine headache burden and reduces risk for seizure activity. Can you riboflavin 400 mg q.a.m. Continue magnesium oxide 400 mg q.h.s. For seizure activity: Continue Oxcarbazepine 300mg qhs- patient states he can not take during the day as it makes him too sleepy. Continue phenytoin sodium ER 300 mg daily at bedtime Maintain regular dental appointments to observe for potential side effects from Dilantin. Pt to follow-up in 3-4 months or sooner prn. Medications: New propranolol ER 60 mg PO BEDTIME 30 caps 3RF 30 days propranolol and 1 hour before sexual activity 10 mg PO BID PRN 60 tabs 1RF migraine headache 30 days Coding Level of Care Code Est Pt Level 4 (78322) Complex EM visit Add On G2211 Diagnoses Thunderclap headache G44.53 Migraine with aura G43.109 Nocturnal muscle cramp R25.2 Nocturnal paroxysmal dystonia G47.8
[2024-07-31 09:21] VITALS: BP 120/84; PULSE 67; O2SAT 98; BMI 32.4
--- OUTSIDE RECORDS SUMMARY | 2024-07-31 10:01 | XMS_ITS | Encounter Summary ---
Author Organization [facility] Address [address] [place] [address] Care Team Providers Care Park Attendant Name Role Phone Jr Contreras MD Primary Care Provider [phone] Reason for Visit * Consultation (Routine) - Authorized Specialty Diagnoses / Procedures Referred By Contac t Referred To Contact Physical Therapy Diagnoses Chronic right-sided low back pain with right-sided sciatica Sánchez Dorantes PA [address] [place] [id number] Phone: tel: fax: Referral ID Status Reason Start Date Expiration Date Visits Requested Visits Authorized [id number] Authorized Consult and Treat 06/21/2024 06/21/2025 20 20 Encounter Details Date Type Department Care Team (Latest Contact Info) Description 07/17/2024 9:00 AM EST Evaluation [facility] [address] [id number] Liliana Tellez PT Chronic right-sided low back pain with right-sided sciatica Social History Tobacco Use Types Packs/Day Years Used Date Smoking Tobacco: Never Smokeless Tobacco: Never Alcohol Use Standard Drinks/Week Comments Never 0 (1 standard drink = 0.6 oz pur e alcohol) Sex and Gender Information Value Date Recorded Sex Assigned at Not on file Legal Sex Male 4:51 AM EST Gender Identity Not on file Sexual Orientation Not on file documented as of this encounter Progress Notes * Liliana Tellez PT - 07/17/2024 9:00 AM EST [facility] - Outpatient PHYSICAL THERAPY EVALUATION Date: 07/17/2024 Visit Number: 1 Patient Name: Dhruv Campos : 1975 Age: 49 y.o. Gender: male Diagnosis: ICD-10-CM ICD-9-CM 1. Chronic right-sided low back pain with right-sided sciatica M54.41 724.2 Ambulatory referral to Physical Therapy and Athletic Training G89.29 724.3 338.29 Date of Onset/Surgery: 09/14/2018 Referring Provider: Sánchez Dorantes PA Insurance: Payor: [place] / Plan[place] / Product Type: *No Product type* / Patient identified by: Liliana Tellez PT Language: Speaks and understands Stateless as preferred language with no superintendent meter tests required Chart Reviewed: Yes Medications: Current Outpatient Medications on File Prior to Visit Medication Sig Dispense Refill cholecalciferol (VITAMIN D-3) 25 mcg (1,000 unit) tablet Take 1 tablet (1,000 Units total) by mouth1 (one) time each day. DULoxetine (CYMBALTA) [address] capsule Take 1 Capsule by mouth daily. famotidine (PEPCID) 20 mg tablet Take 20 mg by mouth 2 times daily. hydrOXYzine HCL (ATARAX) 50 mg tablet Take 1 tablet (50 mg total) by mouth if needed. magnesium oxide 400 mg magnesium capsule Take 1 capsule by mouth 1 (one) time each day. at bedtime meloxicam (MOBIC) 15 mg tablet Meloxicam 15 MG TABLET DISPERSIBLE Take by mouth as needed. nortriptyline (PAMELOR) 10 mg capsule Take 1 capsule (10 mg total) by mouth at bedtime. TAKE 1 CAPSULE BY MOUTH NIGHTLY AT BEDTIME OXcarbazepine (TRILEPTAL) 150 mg tablet Take 1 tablet (150 mg total) by mouth 2 (two) times a day. phenytoin (DILANTIN) 300 mg ER capsule Take 300 mg by mouth daily. riboflavin (VITAMIN B2) 400 mg tablet Take 1 tablet (400 mg total) by mouth 1 (one) time each day. SUMAtriptan (IMITREX) 100 mg tablet Take 1 tablet (100 mg total) by mouth 1 (one) time if needed for migraine. No current facility-administered medications on file prior to visit. Discussed current medications that may impact therapy. Medication list obtained and reviewed. Referto document in medical record. Advised Patient to contact MD with any questions regarding medications and importance of managing medication information. has a past medical history of Diabetes mellitus type 2, controlled, with complications ([facility]), Seizure ([facility]), and Stomach ulcer. has a past surgical history that includes Appendectomy. is allergic to tramadol. Precautions: Fibromyalgia, seizures Concurrent Services: No Concurrent Services Previous Medical Care/Therapy: Prior PT but stopped because it made sx worse SUBJECTIVE History of Present Illness/Subjective Report: The patient reports in 2018 he started experiencing symptoms of fibromyalgia and was then diagnosed in 2019. The patient was sent to PT for low back painbut experienced too much pain following the evaluation that he stopped going. The patient reports he had MRI of back that showed disc bulge and arthritis. Patient began experiencing seizures due to severity of pain in low back. The patient reports difficulty getting out of bed and sleeping. 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 He reports pain medication does not help and tends to make symptoms works. The patient reports medical marijuana helps reduce pain the most and he takes edibles before bed to sleep at night. Current Functional Limitations: Reported by Patient and Spouse / Significant Other difficulty sleeping, getting in/out of bed, difficulty with walking, and difficulty bending forward. Is the patient at Risk for Falls: No Pain: VAS: 10/10 Location/descriptors: constant/burning pain in low back and down R LE Prior Level of Function: was working construction and independent with all ADLs OBJECTIVE Posture: decrease lumbar lordosis Spine Assessment: Spine ROM Active Lumbar flexion (0-60) 30 Lumbar extension (0-35) 10 Lumbar side bending R (0-25) 15 Lumbar side bending L (0-25) 15 Lumbar Rotation R (0-20) 15 Lumbar Rotation L (0-20) 20 Gross LE strength: 4+/5 Palpation: Moderate to severe tenderness to palpation of SP of T12 to L5 Moderate myofascial restriction to bilateral erector spinae and QL Moderate trigger point to R QL Special Tests: Slump Negative ASSESSMENT/Response to Treatment: Dhruv Campos is a 49 y.o. male presenting for outpatient physical therapy evaluation with complaints of chronic low back pain with right sided sciatica. Significant clinical findings include: limited lumbar ROM, myofascial restrictions, joint restrictions, and flexibility restrictions. Skilled Physical therapy is medically necessary to decrease pain, improve lumbar ROM, improve flexibility, improve myofascial mobility, and improve core stability in order to allow the patient to perform functional activities with increased ease and independence. Rehabilitation Potential: Rehab Potential: Condition Has Potential to Improve Motivation for Rehab: Good Support Structure: Good Learning Needs: Were Patient Learning needs assessed: Yes Learning Preferences: Explanation and Demonstration Barriers to Learning: No Barriers to Learning Patient Education: [x] Discussed, with patient and/or caregiver, the recommended plan of care/goals, the importance oftherapy and appointment compliance in order to achieve goals in a timely manner. Education provided: Hold on exercises, education on myofascial release Education Provided To: Patient utilizing Explanation as mode(s) of education. Response to Education: Applied Knowledge and Verbal Understanding GOALS Goals Addressed This Visit's Progress LTG - 8 visits Patient reports subjective decrease in low back pain Patient is able to achieve 50 degrees of lumbar flexion Slight myofascial restriction to thoracolumbar fascia Slight flexibility restriction to bilateral QL Patient is able to achieve 15 degrees of lumbar extension Patient is independent and compliant with HEP PLAN POC Development/Review: Initial Evaluation; Participants: Patient Skilled Therapy Plan Required: YES- Reasons for Rehab and Medical Necessity -- Reduce Need for Assist with Functional Activity/ADL's/Mobility Planned Therapy Interventions: Cold Pack, Gait Training, Group Therapy, Hot Pack, Manual Therapy, Neuromuscular Re-education, Therapeutic Activity, and Therapeutic Exercise Recommended Consults: none Equipment Recommended: none; Equipment Provided: none Frequency/Duration: 2x per weeek for 4 weeks BILLING TOTAL TREATMENT TIME: 60 Minutes Evaluation Medium Complexity Justification ::: Moderate time effort (typically 30 minutes) spent [id number] with the patient and/or family Documentation completed by Liliana Tellez PT [facility] [address] [address] Dept: [phone] Dept PATIENT NAME: Dhruv Campos : 1975 Certification: This is to certify that the above named patient, who is under my care, requires skilled Therapy services as described in the above treatment plan. I further certify that the services outlined in this plan are skilled and medically necessary. I have reviewed this plan for rehabilitation services, and I recommend that these services continue to meet the above stated goals and plan. SIGNATURE: DATE Sánchez Dorantes PA Referring provider documented in this encounter Plan of Treatment Upcoming Encounters Date Type Department Care Team (Late st Contact Info) Description 07/31/2024 11:30 AM EST Treatment [address] [phone] Liliana Tellez, PT 08/08/2024 1:00 PM EST Treatment [address] [phone] Liliana Tellez, PT 08/13/2024 11:30 AM EDT Treatment [address] [phone] Liliana Tellez, PT 08/15/2024 12:30 PM EDT Treatment [address] [phone] Liliana Tellez, PT 08/20/2024 11:30 AM EDT Treatment [facility] [address] [phone] Liliana Tellez, PT 08/22/2024 11:30 AM EDT Treatment [address] [phone] Liliana Tellez, PT 08/27/2024 11:30 AM EDT Treatment [address] [address] Liliana Tellez PT documented as of this encounter Goals Goal Patient Goal Type Associated Problems Recent Progress Patient-Stated? Author LTG - 8 visits General No Liliana Tellez PT Note: Patient reports subjective decrease in low back pain Patient is able to achieve 50 degrees of lumbar flexion Slight myofascial restriction to thoracolumbar fascia Slight flexibility restriction to bilateral QL Patient is able to achieve 15 degrees of lumbar extension Patient is independent and compliant with HEP documented as of this encounter Visit Diagnoses Diagnosis Chronic right-sided low back pain with right-sided sciatica documented in this encounter Orders Outpatient Referral Count Last Ordered Date Fir st Ordered Date AMB REFERRAL TO [facility] 1 07/17/2024 documented in this encounter Care Teams Park Attendant Relationship Specialty Start Date End Date Jr Contreras MD [address] [place] [address] PCP - General Internal Medicine 01/29/22 documented as of this encounter
--- OUTSIDE RECORDS SUMMARY | 2024-07-31 10:01 | XMS_ITS | Clinical Summary ---
Author Organization [facility] Address [address] [place] [address] Phone Care Team Providers Care Lye Treater Name Role Phone Jr Contreras MD Primary Care Provider [phone] Allergies Active Allergy Reactions Criticality Noted Date Comments Tramadol 05/25/2021 Medications DULoxetine (CYMBALTA) [address] capsule Take 1 Capsule by mouth daily. Active famotidine (PEPCID) 20 mg tablet Take 20 mg by mouth 2 times daily. Active meloxicam (MOBIC) 15 mg tablet Meloxicam 15 MG TABLET DISPERSIBLE Take by mouth as needed. Active phenytoin (DILANTIN) 300 mg ER capsule Take 300 mg by mouth daily. Active cholecalciferol (VITAMIN D-3) 25 mcg (1,000 unit) tablet Take 1 tablet (1,000 Units total) by mouth 1 (one) time each day. 4 Active hydrOXYzine HCL (ATARAX) 50 mg tablet Take 1 tablet (50 mg total) by mouth if needed. 4 Active magnesium oxide 400 mg magnesium capsule Take 1 capsule by mouth 1 (one) time each day. at bedtime 4 Active nortriptyline (PAMELOR) 10 mg capsule Take 1 capsule (10 mg total) by mouth at bedtime. TAKE 1 CAPSULE BY MOUTH NIGHTLY AT BEDTIME 4 Active SUMAtriptan (IMITREX) 100 mg tablet Take 1 tablet (100 mg total) by mouth 1 (one) time if needed for migraine. 4 Active riboflavin (VITAMIN B2) 400 mg tablet Take 1 tablet (400 mg total) by mouth 1 (one) time each day. 4 Active OXcarbazepine (TRILEPTAL) 150 mg tablet Take 1 tablet (150 mg total) by mouth 2 (two) times a day. 5 Active amLODIPine (NORVASC) 5 mg tablet Take 1 tablet (5 mg total) by mouth 1 (one) time each day. 30 each 5 08/25/19 25 Active Active Problems Problem Noted Date Diagnosed Date Class 1 obesity due to exces s calories without serious comorbidity with body mass index (BMI) of 32.0 to 32.9 in adult 05/14/2024 Nailbed laceration, finger, initial encounter Chronic right-sided low back pain with right-romulo ed sciatica 01/29/2022 Overview (05/14/2024): Last Assessment & Plan: Mr. Campos has been suffering with right sided low back pain and radiation to the right leg for some time. He gets pain in the right hip, lateral thigh, and lateral calf. Some of this may be overlay from his fibromyalgia. He has been taking Lyrica without relief. He has seen physical therapy and a chiropracter on a limited basis. We will order an MRI or the lumbar spin. Upper back pain on right side 01/29/2022 Overview (05/14/2024): Last Assessment & Plan: Mr. Campos is describing severe right greater than left upper back pain with associated tenderness. The pain is worse when he takes a deep breath and feels like a band around his chest. The pain is severe and incapacitating and he says that this is the worst part of his whole situation. There was some swelling or muscle spasm on the right thoracic paraspinal musculature. I would like to order an MRI of the thoracic spine to better understand his situation. Lumbosacral radiculopathy du e to intervertebral disc disorder 05/25/2021 Overview (05/14/2024): Last Assessment & Plan: Mr. Campos had no clear benefit from the 4 days of steroids back in April. There is some relief using a lidocaine patch once he gets over the shock of the cold temperature which his states is very distressing for him. He demonstrates his pain in the right lateral thigh up to the buttock and lower back but, at its worst, it can extend all the way up to the occiput. He frequently has numbness and cramping of the thigh and then his leg gives out. He fell down a flight of stairs last week during such an episode. On exam, straight leg raise is positive bilaterally at 90 degrees right greater than left. Strength is 5 out of 5 confrontational testing, gait is slow but steady. I reviewed his lumbar spine MRI showing small central to right paracentral disc herniation L5-S1 effacing the medial aspect of the S1 root. I believe there is also focal foraminal disc herniation affecting the right L5 root, more likely the cause of his symptoms. We discussed more treatment options including a right L5 transforaminal injection, the previously discussed aquatic therapy and acupuncture. They would like to pursue aquatic therapy. Hx of drug abuse 04/07/2021 DDD (degenerative disc disease), lumbar 02/16/20 21 Overview (05/14/2024): Report: MR Lumbar Spine WO Ordered By: RUPERT NIETO NP Date: 02/18/2021 9:24:15 AM -04:00 Status: F HISTORY: Low back and right leg pain, recent fall. COMPARISON: Lumbar spine radiographs on 02/13/2021. FINDINGS: Noncontrast lumbar spine MRI was performed on a 3 [employer] system. There is no fracture or subluxation. Heterogeneous vertebral body bone marrow signal. The conus medullaris appears normal and terminates at the L1-L2 level. L2-L3 levels unremarkable. L3-L4 level mild posterior disc bulging and facet arthritic changes with mild central canal and mild right neural foraminal narrowing. L4-L5 level mild minimal posterior disc bulging and facet arthritic changes with mild bilateral neural foraminal narrowing. No central canal stenosis. L5-S1 level posterior disc bulging with superimposed small right paracentral disc herniation effacing the right S1 nerve root with facet arthritic changes and mild right neural foraminal narrowing. IMPRESSION: L5-S1 level focal right paracentral disc bulge herniation complex effacing the right S1 nerve root. L3-S1 levels posterior disc bulging and facet arthritic changes with mild central canal narrowing at the L3-L4 level and multilevel neural foraminal narrowing, as above, right greater than left. 02/13/2021: Mercniki: Xray of lumbar: FINDINGS: Five views of the lumbar spine reveal demonstrate no fracture or subluxation. There is facet arthritic changes and disc space narrowing L4-S1 levels. IMPRESSION: Degenerative changes L4-S1 levels. Psychogenic nonepileptic seizure 09/13/2020 Current moderate episode of major depressive disorder without prior episode 04/13/2020 Fibromyalgia 04/13/2020 Chronic GERD 07/03/2019 Mixed hyperlipidemia 07/03/2019 Prediabetes 04/02/2019 Right carpal tunnel syndrome 04/02/2019 Overview (05/14/2024): EMG study done of right side, shows mild to moderate right median mononeuropathy at the wrist (consistent with carpel tunnel) including focal sensory and motor fiber demyelination and sensory axon loss. Rotator cuff syndrome 04/02/2019 Overview (05/14/2024): right > left Encounters Date Type Department Care Team Description 07/25/2024 9:45 AM EST - 07/25/2024 2:10 PM EST Emergency [facility] Emergency [address] [place] [phone] Rikki Mccann MD Migraine without status migrainosus, not intractable, unspecified migraine type (Primary Dx); Hypertension, unspecified type Discharge Disposition: Home or Self Care 07/17/2024 9:00 AM EST Evaluation [facility] Outpatient Rehabilitation [facility] [address] [phone] Liliana Tellez PT Chronic right-sided low back pain with right-sided sciatica 06/21/2024 1:30 PM EST Consult Orthoped[facility] - [facility] [address] [place] [phone] Sánchez Dorantes PA Chronic right-sided low back pain with right-sided sciatica 06/21/2024 12:55 PM EST - 06/21/2024 11:59 PM EST Hospital Encounter XRAY - [facility] [address] [place] [address] Low back pain without sciatica, unspecified back pain laterality, unspecified chronicity Discharge Disposition: Home or Self Care from Last 3 Months Immunizations Name Administration Dates Next Due Tdap Tetanus diptheria acell ular pertussis (Boostrix; Adacel) 7yo and older 07/03/2019 Surgical History Surgery Date Site/Laterality Comments APPENDECTOMY PROCEDURE: [place] APPENDECTOMY Medical History Medical History Date Comments Diabetes mellitus type 2, co ntrolled, with complications (CMS/HCC) DX:Diabetes mellitus type 2, controlled, with complications (HCC) Stomach ulcer DX:Stomach ulcer Seizure (CMS/HCC) DX:Seizure (HC C) Social History Tobacco Use Types Packs/Day Years Used Date Smoking Tobacco: Never Smokeless Tobacco: Never Tobacco Cessation:Counseling Given: Not Answered Alcohol Use Standard Drinks/Week Comments Never 0 (1 standard drink = 0.6 oz pur e alcohol) Sex and Gender Information Value Date Recorded Sex Assigned at Not on file Legal Sex Male 4:51 AM EST Gender Identity Not on file Sexual Orientation Not on file Obstetrics History Last Filed Vital Signs Vital Sign Reading Time Taken Comments Blood Pressure 140/93 07/25/2024 1:00 PM EST Pulse 68 07/25/2024 1:00 PM EST Temperature 36.3 ??C (97.4 ??F) 07/25/2024 1:00 PM ES T Respiratory Rate 18 07/25/2024 1:00 PM EST Oxygen Saturation 98% 07/25/2024 1:00 PM EST Inhaled Oxygen Concentration - - Weight 96.2 kg (212 lb) 07/25/2024 1:00 PM EST Height 172.7 cm (5' 8 ) 07/25/2024 1:00 PM EST Body Mass Index 32.23 07/25/2024 1:00 PM EST Plan of Treatment Upcoming Encounters Date Type Department Care Team (Late st Contact Info) Description 07/31/2024 11:30 AM EST Treatment [facility] [address] [phone] Liliana Tellez PT 08/08/2024 1:00 PM EST Treatment [facility] [address] [phone] Liliana Tellez, PT 08/13/2024 11:30 AM EDT Treatment [facility] [address] [phone] Liliana Tellez, PT 08/15/2024 12:30 PM EDT Treatment [address] [phone] Liliana Tellez, PT 08/20/2024 11:30 AM EDT Treatment [address] [phone] Liliana Tellez, PT 08/22/2024 11:30 AM EDT Treatment [address] [phone] Liliana Tellez, PT 08/27/2024 11:30 AM EDT Treatment [address] [phone] Liliana Tellez, PT Health Maintenance Due Date Last Done Comments Hepatitis B Vaccines (1 of 3 - 19+ 3-dose series) 1993 Social Influencers of Health Screening 05/09/2022 Colorectal Cancer Screening: Stool Based Tests (FOBT/FIT) 10/07/2022 10/07/2021 COVID-19 Vaccine ( - season) 2024 Influenza Vaccine (#1) 2024 Pneumococcal Vaccine: 50+ Years (1 of 1 - PCV) 2024 Zoster Vaccines (1 of 2) 2024 Depression Screening 06/08/2025 06/08/2024 Hypertension/CHF/CAD Annual BMP Blood Test 07/25/2025 07/25/2024, 06/08/2024, 07/30/2022, Additional history exists Cholesterol Screening (Lipid Panel) 06/08/2029 06/08/2024, 02/16/2021, 02/16/2021, Additional history exists DTaP,Tdap,and Td Vaccines (3 - Td or Tdap) 02/27/2032 02/26/2022, 07/03/2019 Hepatitis C Screening Completed 02/16/2021, 021 HIV Screening Completed 10/08/2021 HIB Vaccines Aged Out No longer eligi ble based on patient's age to complete this topic HPV Vaccines Aged Out No longer eligi ble based on patient's age to complete this topic Hepatitis A Vaccines Aged Out No long er eligible based on patient's age to complete this topic IPV Vaccines Aged Out No longer eligi ble based on patient's age to complete this topic MMR Vaccines Aged Out No longer eligi ble based on patient's age to complete this topic Meningococcal ACWY Vaccine Aged Out N o longer eligible based on patient's age to complete this topic Meningococcal B Vacine Aged Out No lo nger eligible based on patient's age to complete this topic Pneumococcal Vaccine: Pediatrics (0 to 5 Years) and At-Risk Patients (6 to 64 Years) Aged Out No longer eligible based on patient's age to complete this topic RSV Immunization Patients Under 20 months Aged Out No longer eligible based on patient's age to complete this topic Varicella Vaccines Aged Out No longer eligible based on patient's age to complete this topic Goals Goal Patient Goal Type Associated Problems Recent Progress Patient-Stated? Author LTG - 8 visits General No Liliana Tellez, PT Note: Patient reports subjective decrease in low back pain Patient is able to achieve 50 degrees of lumbar flexion Slight myofascial restriction to thoracolumbar fascia Slight flexibility restriction to bilateral QL Patient is able to achieve 15 degrees of lumbar extension Patient is independent and compliant with HEP Procedures Procedure Name Priority Date/Time Associated Diagnosis Comments ECG ANNOTATED 07/26/2024 TROPONIN I HIGH SENSITIVITY STAT 07/25/2024 11:[address] HEAD WO CONTRAST STAT 07/25/2024 1 0:30 AM EST XR CHEST 1 VIEW STAT 07/25/2024 10:23 AM EST PROLACTIN STAT 07/25/2024 10:04 AM EST TROPONIN I HIGH SENSITIVITY STAT 07/25/2024 10:04 AM EST LACTATE STAT 07/25/2024 10:04 AM EST ETHANOL STAT 07/25/2024 10:04 AM EST COMPREHENSIVE METABOLIC PANEL STAT 07/25/2024 10:04 AM EST XR LUMBAR SPINE 4+ VIEWS Routine 06/21/2024 1:08 PM EST Low back pain without sciatica, unspecified back pain laterality, unspecified chronicity HM HIV SCREENING Routine 10/08/2021 HEPATITIS C SCREENING Routine 02/16/2021 LIPID PANEL Routine 02/16/2021 from Last 3 Months or Most Recently Relevant to Health Maintenance Results * ECG-Annotated (07/26/2024) us Provider Onbase ECG ORDERABLES Final Result * Troponin I high sensitivity (07/25/2024 11:27 AM EST) Only the most recent of2 resultswithin the time period is included. High Sensitivity Troponin I 17 <=79 ng/L LAB CHEMISTRY METHOD 07/25/2024 12:26 PM EST [facility] Blood Venous blood specimen / Unknown Venipuncture / Unknown 07/25/2024 11:27 AM EST 07/25/2024 11:40 AM EST Narrative [facility] - 07/25/2024 12:26 PM EST High levels of biotin in samples may falsely decrease hsTroponin values. ??Use caution when interpreting hsTroponin results in patients taking biotin who exhibit renal impairment (eGFR <60) or in patients taking more than 20 mg/day of biotin. us Rikki Mccann MD LAB BLOOD ORDERABLES Final Res ult [facility] [address] [place] [address], * CT Head wo Contrast (07/25/2024 10:30 AM EST) Anatomical Region Laterality Modality Head and Neck Computed Tomogra phy 07/25/2024 11:0 1 AM EST Impressions 07/25/2024 11:04 AM EST NO ACUTE INTRACRANIAL ABNORMALITY. -------- FINAL REPORT -------- Dictated By: ZACH SKINNER Dictated Date: 07/25/2024 11:01 ET Assigned Physician: ZACH SKINNER Reviewed and Electronically Signed By: ZACH SKINNER Signed Date: 07/25/2024 11:04 ET Workstation ID: [id number] Transcribed By: Self Edit Transcribed Date: 07/25/2024 11:01 ET Narrative 07/25/2024 11:04 AM EST PROCEDURE: HEAD CT INDICATION: Pain, hemorrhage TECHNIQUE: CT of the head without intravenous contrast. Multiplanar reformats. The examination was performed utilizing dose reduction techniques. Total DLP 809 COMPARISON: ??10/21/2023 FINDINGS: ?? No acute territorial infarct, mass effect, or intracranial hemorrhage. Smoers-white differentiation is preserved. ??Brain parenchyma is normal. Ventricles, sulci, and cisterns are normal in size and configuration. No hydrocephalus or volume loss. Visualized paranasal sinuses and mastoid air cells are clear. No scalp hematoma or skull fracture. Procedure Note Zach Skinner MD - 07/25/2024 PROCEDURE: HEAD CT INDICATION: Pain, hemorrhage TECHNIQUE: CT of the head without intravenous contrast. Multiplanarreformats. The examination was performed utilizing dose reductiontechniques. Total DLP 809 COMPARISON: 10/21/2023 FINDINGS: No acute territorial infarct, mass effect, or intracranial hemorrhage. Somers-white differentiation is preserved. Brain parenchyma is normal. Ventricles, sulci, and cisterns are normal in size and configuration. Nohydrocephalus or volume loss. Visualized paranasal sinuses and mastoid air cells are clear. No scalp hematoma or skull fracture. IMPRESSION: NO ACUTE INTRACRANIAL ABNORMALITY. -------- FINAL REPORT -------- Dictated By: ZACH SKINNER Dictated Date: 07/25/2024 11:01 ET Assigned Physician: ZACH SKINNER Reviewed and Electronically Signed By: ZACH SKINNER Signed Date: 07/25/2024 11:04 ET Workstation ID: [id number] Transcribed By: Self Edit Transcribed Date: 07/25/2024 11:01 ET Rikki Mccann MD IMG CT PROCEDURES Final Result * XR Chest 1 View (07/25/2024 10:23 AM EST) Anatomical Region Laterality Modality Body Radiographic Zoie ging 07/25/2024 10:3 5 AM EST Impressions 07/25/2024 10:36 AM EST FINDINGS/IMPRESSION: Lungs are clear. ??No pleural effusion or pneumothorax. ??Cardiac silhouette and bones are normal. -------- FINAL REPORT -------- Dictated By: ZACH SKINNER Dictated Date: 07/25/2024 10:35 ET Assigned Physician: ZACH SKINNER Reviewed and Electronically Signed By: ZACH SKINNER Signed Date: 07/25/2024 10:36 ET Workstation ID: [id number] Transcribed By: Self Edit Transcribed Date: 07/25/2024 10:35 ET Narrative 07/25/2024 10:36 AM EST XR CHEST 1 VIEW INDICATION: ??Seizure, pain TECHNIQUE: XR CHEST 1 VIEW COMPARISON: 10/21/2023 Procedure Note Zach Skinner MD - 07/25/2024 XR CHEST 1 VIEW INDICATION: Seizure, pain TECHNIQUE: XR CHEST 1 VIEW COMPARISON: 10/21/2023 IMPRESSION: FINDINGS/IMPRESSION: Lungs are clear. No pleural effusion orpneumothorax. Cardiac silhouette and bones are normal. -------- FINAL REPORT -------- Dictated By: ZACH SKINNER Dictated Date: 07/25/2024 10:35 ET Assigned Physician: ZACH SKINNER Reviewed and Electronically Signed By: ZACH SKINNER Signed Date: 07/25/2024 10:36 ET Workstation ID: [id number] Transcribed By: Self Edit Transcribed Date: 07/25/2024 10:35 ET us Rikki Mccann MD IMG XR PROCEDURES Final Result * Prolactin (07/25/2024 10:04 AM EST) Prolactin 8.00 2.50 - 17.40 ng/mL LAB CHEMISTRY METHOD 07/25/2024 11:02 AM EST [facility] Blood Venous blood specimen / Unknown Venipuncture / Unknown 07/25/2024 10:04 AM EST 07/25/2024 10:36 AM EST us Rikki Mccann MD LAB BLOOD ORDERABLES Final Res ult Performing Organization Address [facility]/ZIP Co de Phone Number [facility] [address] [place] [address], * Lactate (07/25/2024 10:04 AM EST) Lactate 1.9 0.4 - 2.0 mmol/L LAB CHEMISTRY METHOD 07/25/2024 11:02 AM EST [facility] Blood Venous blood specimen / Unknown Venipuncture / Unknown 07/25/2024 10:04 AM EST 07/25/2024 10:35 AM EST us Rikki Mccann MD LAB BLOOD ORDERABLES Final Res ult Performing Organization Address City/[facility]/ZIP Co de Phone Number [facility] [address] [place] [address], * Ethanol (07/25/2024 10:04 AM EST) Ethanol Level <3 0 - 10 mg/dL LAB CHEMISTRY METHOD 07/25/2024 11:01 AM EST [facility] Blood Venous blood specimen / Unknown Venipuncture / Unknown 07/25/2024 10:04 AM EST 07/25/2024 10:36 AM EST us Rikki Mccann MD LAB BLOOD ORDERABLES Final Res ult [facility] [address] [place] [address], [place] [phone] * (ABNORMAL) Comprehensive Metabolic Panel (CMP) (07/25/2024 10:04 AM EST) Sodium 138 133 - 145 mmol/L LAB CHEMISTRY METHOD 07/25/2024 11:01 AM [facility] Potassium 4.1 3.5 - 5.5 mmol/L LAB CHEMISTRY METHOD 07/25/2024 11:01 AM [facility] Chloride 106 96 - 110 mmol/L LAB CHEMISTRY METHOD 07/25/2024 11:01 AM [facility] CO2 25 21 - 32 mmol/L LAB CHEMISTRY METHOD 07/25/2024 11:01 AM [facility] Anion Gap 7 3 - 11 LAB CHEMISTRY METHOD 07/25/2024 11:01 AM [facility] Glucose 106(H) 70 - 100 mg/dL LAB CHEMISTRY METHOD 07/25/2024 11:01 AM [facility] BUN 12 5 - 25 mg/dL LAB CHEMISTRY METHOD 07/25/2024 11:01 AM [facility] Creatinine 0.89 0.70 - 1.30 mg/dL LAB CHEMISTRY METHOD 07/25/2024 11:01 AM [facility] eGFR 104 >=60 mL/min/1. 73m2 LAB CHEMISTRY METHOD 07/25/2024 11:01 AM [facility] Comment:Calculation based on the??Chronic Kidney Disease Epidemiology Collaboration (CKD-EPI) equation refit??without adjustment for race. BUN/Creatinine Ratio 13.5 LAB CHEMISTRY METHOD 07/25/2024 11:01 AM EST [facility] Calcium 9.9 8.5 - 10.5 mg/dL LAB CHEMISTRY METHOD 07/25/2024 11:01 AM [facility] AST (SGOT) 35 10 - 42 unit/L LAB CHEMISTRY METHOD 07/25/2024 11:01 AM [facility] ALT (SGPT) 49 10 - 60 unit/L LAB CHEMISTRY METHOD 07/25/2024 11:01 AM [facility] Alkaline Phosphatase 107 42 - 121 unit/L LAB CHEMISTRY METHOD 07/25/2024 11:01 AM [facility] Total Protein 8.0 6.0 - 8.0 g/dL LAB CHEMISTRY METHOD 07/25/2024 11:01 AM [facility] Albumin 4.3 3.2 - 5.0 g/dL LAB CHEMISTRY METHOD 07/25/2024 11:01 AM [facility] Total Bilirubin 0.6 0.0 - 1.4 mg/dL LAB CHEMISTRY METHOD 07/25/2024 11:01 AM [facility] Blood Venous blood specimen / Unknown Venipuncture / Unknown 07/25/2024 10:04 AM EST 07/25/2024 10:36 AM EST Rikki Mccann MD LAB BLOOD ORDERABLES Final Res ult [facility] [address] [place] [address], * XR Lumbar Spine 4+ Views (06/21/2024 1:08 PM EST) Anatomical Region Laterality Modality Spine, L-spine Radiographic Zoie ging 06/21/2024 10:0 6 PM EST Impressions 06/21/2024 10:11 PM EST Multilevel degenerative changes. POS - [id number] -------- FINAL REPORT -------- Dictated By: Evette Douglas Dictated Date: 06/21/2024 22:06 ET Assigned Physician: Evette Douglas Reviewed and Electronically Signed By: Evette Douglas Signed Date: 06/21/2024 22:11 ET Workstation ID: [id number] Transcribed By: Self Edit Transcribed Date: 06/21/2024 22:06 ET Narrative 06/21/2024 10:11 PM EST EXAM: Lumbar spine x-ray HISTORY: Low back pain without sciatica. COMPARISON: None FINDINGS: 4 views of the lumbar spine were performed. 5 lumbar type vertebral bodies. Vertebral body heights are maintained. ??Mild disc space narrowing at L3-4 and L5-S1. ??Multilevel endplate spurring. ??No evidence of spondylolysis or spondylolisthesis. ??Facet arthropathy in the lower spine. Procedure Note Evette Douglas MD - 06/21/2024 EXAM: Lumbar spine x-ray HISTORY: Low back pain without sciatica. COMPARISON: None FINDINGS: 4 views of the lumbar spine were performed. 5 lumbar type vertebral bodies. Vertebral body heights are maintained.Mild disc space narrowing at L3-4 and L5-S1. Multilevel endplatespurring. No evidence of spondylolysis or spondylolisthesis. Facetarthropathy in the lower spine. IMPRESSION: Multilevel degenerative changes. POS - [id number] -------- FINAL REPORT -------- Dictated By: Evette Douglas Dictated Date: 06/21/2024 22:06 ET Assigned Physician: Evette Douglas Reviewed and Electronically Signed By: Evette Douglas Signed Date: 06/21/2024 22:11 ET Workstation ID: [id number] Transcribed By: Self Edit Transcribed Date: 06/21/2024 22:06 ET Sánchez PENG IMG XR PROCEDURES Final Result * HIV Screening (10/08/2021) Pathologist [facility] HIV Screening Abstracted Historical Provider HEALTH MAINTENANCE Final Result * Hepatitis C Screening (02/16/2021) Pathologist [facility] Hepatitis C Screening No interpretation Historical Provider HEALTH MAINTENANCE Final Result * Lipid panel (02/16/2021) LDL/HDL Ratio 0 Comment:No interpretation Triglycerides 0 mg/dL Comment:No interpretation Cholesterol 0 mg/dL Comment:No interpretation HDL 0 mg/dL Comment:No interpretation LDL Cholesterol 0 mg/dL Comment:No interpretation Blood Venous blood specimen / Unknown Historical Provider LAB BLOOD ORDERABLES Dhara l Result from Last 3 Months or Most Recently Relevant to Health Maintenance Insurance MEDICAID - [place] [facility] Care Teams Lye Treater Relationship Specialty Start Date End Date Jr Contreras MD [address] [place] [address] PCP - General Internal Medicine 01/29/22
--- OUTSIDE RECORDS SUMMARY | 2024-07-31 10:01 | XMS_ITS | Encounter Summary ---
Author Organization [facility] Address [address] [place] [address] Care Team Providers Care Bioinformatics Associate Name Role Phone Jr Contreras MD Primary Care Provider [phone] Reason for Visit * Reason Comments Headache Encounter Details Date Type Department Care Team (Late st Contact Info) Description 07/25/2024 9:45 AM EST - 07/25/2024 2:10 PM EST Emergency [facility] Emergency [address] [place] [id number] Rikki Mccann MD [address] [place] [phone] Migraine without status migrainosus, not intractable, unspecified migraine type (Primary Dx); Hypertension, unspecified type Discharge Disposition: Home or Self Care Social History Tobacco Use Types Packs/Day Years [...] on file documented as of this encounter Last Filed Vital Signs Vital Sign Reading [...] Mass Index 32.23 07/25/2024 1:00 PM EST documented in this encounter Functional Status * Are you deaf or do you have serious difficulty hearing? Answer Date of Assessment Author No 07/25/2024 10:11 AM Senia Vo RN * Are you blind or do you have serious difficulty seeing, even when wearing glasses? Answer Date of Assessment Author No 07/25/2024 10:11 AM Senia Vo RN * Do you have serious difficulty walking or climbing stairs? Answer Date of Assessment Author No 07/25/2024 10:11 AM Senia oV RN * Do you have serious difficulty dressing or bathing? Answer Date of Assessment Author No 07/25/2024 10:11 AM Senia Vo RN * Because of a physical, mental, or emotional condition, do you have serious difficulty doing errandsalone such as visiting the doctor? Answer Date of Assessment Author No 07/25/2024 10:11 AM Senia Vo RN documented as of this encounter Mental Status * Because of a physical, mental, or emotional condition, do you have serious difficulty concentrating, remembering, or making decisions? (5 years old or older) Answer Entry Date Author No 07/25/2024 10:11 AM Senia Vo RN documented in this encounter Discharge Instructions * Attachments The following attachments cannot be sent through Care Everywhere. * Hypertension: General Info (Palauan) * Migraine Headache ([place]auan) documented in this encounter Medications at Time of Discharge amLODIPine (NORVASC) 5 mg tablet Take 1 tablet (5 mg total) by mouth 1 (one) time each day. 30 each 07/25/2024 cholecalciferol (VITAMIN D-3) 25 mcg (1,000 unit) tablet Take 1 tablet (1,000 Units total) by mouth 1 (one) time each day. 05/29/2024 DULoxetine (CYMBALTA) [address] capsule Take 1 Capsule by mouth daily. famotidine (PEPCID) 20 mg tablet Take 20 mg by mouth 2 times daily. hydrOXYzine HCL (ATARAX) 50 mg tablet Take 1 tablet (50 mg total) by mouth if needed. 03/22/2024 magnesium oxide 400 mg magnesium capsule Take 1 capsule by mouth 1 (one) time each day. at bedtime 09/29/2023 meloxicam (MOBIC) 15 mg tablet Meloxicam 15 MG TABLET DISPERSIBLE Take by mouth as needed. nortriptyline (PAMELOR) 10 mg capsule Take 1 capsule (10 mg total) by mouth at bedtime. TAKE 1 CAPSULE BY MOUTH NIGHTLY AT BEDTIME 09/19/2023 OXcarbazepine (TRILEPTAL) 150 mg tablet Take 1 tablet (150 mg total) by mouth 2 (two) times a day. 06/08/2024 phenytoin (DILANTIN) 300 mg ER capsule Take 300 mg by mouth daily. riboflavin (VITAMIN B2) 400 mg tablet Take 1 tablet (400 mg total) by mouth 1 (one) time each day. 05/10/2024 SUMAtriptan (IMITREX) 100 mg tablet Take 1 tablet (100 mg total) by mouth 1 (one) time if needed for migraine. 06/02/2024 documented as of this encounter Ordered Prescriptions Prescription Sig Dispense Quantity Refills Last Filled Start Date End Date amLODIPine (NORVASC) 5 mg tablet Take 1 tablet (5 mg total) by mouth 1 (one) time each day. 30 each 07/25/2024 08/24/2024 documented in this encounter Discharge Disposition Disposition Code Departure Means Destination Comment s Home or Self Care documented in this encounter Progress Notes * Elisha Mendoza RN - 07/25/2024 10:00 AM EST Pt pulled out of car reports ? Seizure ativity after taking wifes lisinopril for high bp this am. Patient now restless moaning in pain, twitching, headache and chest pain Elisha Mendoza RN 07/25/24 1002 * Sienna Dodge RN - 07/25/2024 9:45 AM EST Images from the original note were not included. Pt came from ed parking lot, brought in private vehicle with , pt not alert, appears postictal.Pt has hx of seizures and fibromyalgia. states that pt was hypertensive this morning and she gave him an unprescribed dose of lisinopril. Pt assisted out of vehicle and brought to room. * Rikki Mccann MD - 07/25/2024 9:43 AM EST HPI Chief Complaint Patient presents with ??? Headache Patient presents with an unresponsive episode after a possible seizure/shaking episode. Patient has a history of epileptic and nonepileptic seizures. Today he had migraine and hypertension. His gave him a lisinopril due to his high blood pressure and headache. Shortly after this hehad the shaking episode followed by the unresponsive episode. Patient on arrival is awake but minimally verbal. Unable to give complaint Kaiden Coma Scale Score: 15 Patient History Past Medical History: Diagnosis Date ??? Diabetes mellitus type 2, controlled, with complications (CMS/HCC) DX:Diabetes mellitus type 2, controlled, with complications (HCC) ??? Seizure (CMS/HCC) DX:Seizure (HCC) ??? Stomach ulcer DX:Stomach ulcer Past Surgical History: Procedure Laterality Date ??? APPENDECTOMY PROCEDURE: [place] APPENDECTOMY No family history on file. Social History Tobacco Use ??? Smoking status: Never ??? Smokeless tobacco: Never Substance Use Topics ??? Alcohol use: Never ??? Drug use: Yes Types: Marijuana/Cannabis Review of Systems Review of Systems Reason unable to perform ROS: Patient minimally verbal on arrival. Physical Exam ED Triage Vitals [07/25/24 0958] Temp Heart Rate Resp BP 36.5 ??C (97.7 ??F) 65 18 (!) 154/82 SpO2 Temp Source Heart Rate Source Patient Position 99 % Oral Monitor Lying BP Location FiO2 (%) Right arm -- Physical Exam Constitutional: Comments: Patient is arousable. Opens his eyes to verbal. No intelligible speech. Moving all 4 extremities apparently evenly HENT: Head: Normocephalic. Comments: Question lateral tongue abrasion Eyes: Extraocular Movements: Extraocular movements intact. Pupils: Pupils are equal, round, and reactive to light. Cardiovascular: Comments: Regular rate and rhythm without murmurs rubs or gallops Pulmonary: Effort: Pulmonary effort is normal. Breath sounds: Normal breath sounds. Abdominal: Palpations: Abdomen is soft. Musculoskeletal: Cervical back: Neck supple. Comments: No obvious trauma Neurological: Comments: Awake and no obvious focal deficits. ED Course & MDM ED Course as of 07/25/24 1558 Wed Jul 25, 2024 1347 Labs are reassuring and patient is feeling better. His blood pressure has been elevated recently. Given symptoms, will add low-dose amlodipine and have him follow-up with both his neurologist and his PCP [LD] ED Course User Index [LD] Rikki Mccann MD Clinical Impressions as of 07/25/24 1558 Migraine without status migrainosus, not intractable, unspecified migraine type Hypertension, unspecified type Medical Decision Making Differential includes seizure with postictal state. Intracranial hemorrhage Stroke Nonepileptic seizure Hypertensive emergency Will treat with Ativan. Current blood pressure is 154/82 with normal pulse and respirations and saturation. No airway intervention needed. Await labs and CAT scan. EKG shows normal sinus rhythm without ischemia or dysrhythmia Procedures Rikki Mccann MD 07/25/24 1019 Rikki Mccann MD 07/25/24 1558 documented in this encounter Plan of Treatment Upcoming Encounters Date Type Department Care Team (Late st Contact Info) Description 07/31/2024 11:30 AM EST Treatment [facility] [address] [phone] Liliana Tellez, PT 08/08/2024 1:00 PM EST Treatment [facility] [address] [phone] Liliana Tellez, PT 08/13/2024 11:30 AM EDT Treatment [facility] [address] [phone] Liliana Tellez, PT 08/15/2024 12:30 PM EDT Treatment [facility] [address] [phone] Liliana Tellez, PT 08/20/2024 11:30 AM EDT Treatment [facility] [address] [phone] Liliana Tellez, PT 08/22/2024 11:30 AM EDT Treatment [facility] [address] [phone] Liliana Tellez, PT 08/27/2024 11:30 AM EDT Treatment [facility] [address] Roberto [address] [place] [phone] Liliana Tellez, PT Scheduled Orders Name Type Priority Associated Diagnoses Orde r Schedule ECG Confirmed Scan ECG Once f or 1 Occurrences starting 07/25/2024 until 07/25/2024 documented as of this encounter Goals Goal [...] with HEP documented as of this encounter Procedures Procedure Name Priority Date/Time Associated Diagnosis Comments ECG ANNOTATED 07/26/2024 TROPONIN I HIGH SENSITIVITY STAT 07/25/2024 11:[address] HEAD WO CONTRAST STAT 07/25/2024 1 0:30 AM EST XR CHEST 1 VIEW STAT 07/25/2024 10:23 AM EST TROPONIN I HIGH SENSITIVITY STAT 07/25/2024 10:04 AM EST PROLACTIN STAT 07/25/2024 10:04 AM EST LACTATE STAT 07/25/2024 10:04 AM EST ETHANOL STAT 07/25/2024 10:04 AM EST COMPREHENSIVE METABOLIC PANEL STAT 07/25/2024 10:04 AM EST documented in this encounter Results * ECG-Annotated (07/26/2024) us Provider Onbase MD ECG ORDERABLES Final Result * Troponin I high sensitivity (07/25/2024 11:27 AM EST) High Sensitivity Troponin I 17 <=79 ng/L LAB CHEMISTRY METHOD 07/25/2024 12:26 PM EST [facility] Blood Venous blood specimen / Unknown Venipuncture / Unknown 07/25/2024 11:27 AM EST 07/25/2024 11:40 AM EST Narrative [facility] - 07/25/2024 12:26 PM EST High levels of biotin in samples may falsely decrease hsTroponin values. ??Use caution when interpreting hsTroponin results in patients taking biotin who exhibit renal impairment (eGFR <60) or in patients taking more than 20 mg/day of biotin. Rikki Mccann MD LAB BLOOD ORDERABLES Final Res ult [facility] [address] [place] [address], * CT Head wo Contrast (07/25/2024 10:30 AM EST) Anatomical Region Laterality Modality Head and Neck Computed Tomogra phy 07/25/2024 11:0 1 AM EST Impressions 07/25/2024 11:04 AM EST NO ACUTE INTRACRANIAL ABNORMALITY. -------- FINAL REPORT -------- Dictated By: ANNIKA SKINNER Dictated Date: 07/25/2024 11:01 ET Assigned Physician: ANNIKA SKINNER Reviewed and Electronically Signed By: ANNIKA SKINNER Signed Date: 07/25/2024 11:04 ET Workstation ID: [id number] Transcribed By: Self Edit Transcribed Date: 07/25/2024 11:01 ET Narrative 07/25/2024 11:04 AM EST PROCEDURE: HEAD CT INDICATION: Pain, hemorrhage TECHNIQUE: CT of the head without intravenous contrast. Multiplanar reformats. The examination was performed utilizing dose reduction techniques. Total DLP 809 COMPARISON: ??10/21/2023 FINDINGS: ?? No acute territorial infarct, mass effect, or intracranial hemorrhage. Somers-white differentiation is preserved. ??Brain parenchyma is normal. Ventricles, sulci, and cisterns are normal in size and configuration. No hydrocephalus or volume loss. Visualized paranasal sinuses and mastoid air cells are clear. No scalp hematoma or skull fracture. Procedure Note Annika Skinner MD - 07/25/2024 PROCEDURE: HEAD CT [...] ABNORMALITY. -------- FINAL REPORT -------- Dictated By: ANNIKA SKINNER Dictated Date: 07/25/2024 11:01 ET Assigned Physician: ANNIKA SKINNER Reviewed and Electronically Signed By: ANNIKA SKINNER Signed Date: 07/25/2024 11:04 ET Workstation ID: [id number] Transcribed By: Self Edit Transcribed Date: 07/25/2024 [...] normal. -------- FINAL REPORT -------- Dictated By: ANNIKA SKINNER Dictated Date: 07/25/2024 10:35 ET Assigned Physician: ANNIKA SKINNER Reviewed and Electronically Signed By: ANNIKA SKINNER Signed Date: 07/25/2024 10:36 ET Workstation ID: [id number] Transcribed By: Self Edit Transcribed Date: 07/25/2024 10:35 ET Narrative 07/25/2024 10:36 AM EST XR CHEST 1 VIEW INDICATION: ??Seizure, pain TECHNIQUE: XR CHEST 1 VIEW COMPARISON: 10/21/2023 Procedure Note Annika Skinner MD - 07/25/2024 XR CHEST 1 VIEW INDICATION: Seizure, pain TECHNIQUE: XR CHEST 1 VIEW COMPARISON: 10/21/2023 IMPRESSION: FINDINGS/IMPRESSION: Lungs are clear. No pleural effusion orpneumothorax. Cardiac silhouette and bones are normal. -------- FINAL REPORT -------- Dictated By: ANNIKA SKINNER Dictated Date: 07/25/2024 10:35 ET Assigned Physician: ANNIKA SKINNER Reviewed and Electronically Signed By: ANNIKA SKINNER Signed Date: 07/25/2024 10:36 ET Workstation ID: [id number] Transcribed By: Self Edit Transcribed Date: 07/25/2024 10:35 ET Rikki Mccann MD IMG XR PROCEDURES Final Result * Prolactin (07/25/2024 10:04 AM EST) Prolactin 8.00 2.50 - 17.40 ng/mL LAB CHEMISTRY METHOD 07/25/2024 11:02 AM EST [facility] Blood Venous blood specimen / Unknown Venipuncture / Unknown 07/25/2024 10:04 AM EST 07/25/2024 10:36 AM EST Rikki Mccann MD LAB BLOOD ORDERABLES Final Res ult Performing Organization Address City/State/[facility] Co de Phone Number [facility] [address] [place] [address], [place] [phone] * Troponin I high sensitivity (07/25/2024 10:04 AM EST) [facility] High Sensitivity Troponin I 18 <=79 ng/L LAB CHEMISTRY METHOD 07/25/2024 11:02 AM EST [facility] Blood Venous blood specimen / Unknown Venipuncture / Unknown 07/25/2024 10:04 AM EST 07/25/2024 10:36 AM EST Narrative [facility] - 07/25/2024 11:02 AM EST High levels of biotin in samples may falsely decrease hsTroponin values. ??Use caution when interpreting hsTroponin results in patients taking biotin who exhibit renal impairment (eGFR <60) or in patients taking more than 20 mg/day of biotin. us Rikki Mccann MD LAB BLOOD ORDERABLES Final Res ult Performing Organization Address [facility] de Phone Number [facility] [address] [place] [address], * Lactate (07/25/2024 10:04 AM EST) [facility] Lactate 1.9 0.4 - 2.0 mmol/L LAB CHEMISTRY METHOD 07/25/2024 11:02 AM EST [facility] Blood Venous blood specimen / Unknown Venipuncture / Unknown 07/25/2024 10:04 AM EST 07/25/2024 10:35 AM EST us Rikki Mccann MD LAB BLOOD ORDERABLES Final Res ult Performing Organization Address [facility]/ZIP Co de Phone Number [facility] [address] [place] [address], [place] [phone] * Ethanol (07/25/2024 10:04 AM EST) [facility] Ethanol Level <3 0 - 10 mg/dL LAB CHEMISTRY METHOD 07/25/2024 11:01 AM [facility] Blood Venous blood specimen / Unknown Venipuncture / Unknown 07/25/2024 10:04 AM EST 07/25/2024 10:36 AM EST us Rikki Mccann MD LAB BLOOD ORDERABLES Final Res ult [facility] [address] [place] [address], [place] [phone] * (ABNORMAL) Comprehensive Metabolic Panel (CMP) (07/25/2024 10:04 AM EST) [facility] Sodium 138 133 - 145 mmol/L LAB CHEMISTRY METHOD 07/25/2024 11:01 AM [facility] Potassium 4.1 3.5 - 5.5 mmol/L LAB CHEMISTRY METHOD 07/25/2024 11:01 AM [facility] Chloride 106 96 - 110 mmol/L LAB CHEMISTRY METHOD 07/25/2024 11:01 AM [facility] CO2 25 21 - 32 mmol/L LAB CHEMISTRY METHOD 07/25/2024 11:01 AM [facility] Anion Gap 7 3 - 11 LAB CHEMISTRY METHOD 07/25/2024 11:01 AM [facility] Glucose 106(H) 70 - 100 mg/dL LAB CHEMISTRY METHOD 07/25/2024 11:01 AM [facility] BUN 12 5 - 25 mg/dL LAB CHEMISTRY METHOD 07/25/2024 11:01 AM [facility] Creatinine 0.89 0.70 - 1.30 mg/dL LAB CHEMISTRY METHOD 07/25/2024 11:01 AM [facility] eGFR 104 >=60 mL/min/1. 73m2 LAB CHEMISTRY METHOD 07/25/2024 11:01 AM [facility] Comment:Calculation based on the??Chronic Kidney Disease Epidemiology Collaboration (CKD-EPI) equation refit??without adjustment for race. BUN/Creatinine Ratio 13.5 LAB CHEMISTRY METHOD 07/25/2024 11:01 AM [facility] Calcium 9.9 8.5 - 10.5 mg/dL LAB CHEMISTRY METHOD 07/25/2024 11:01 AM [facility] AST (SGOT) 35 10 - 42 unit/L LAB CHEMISTRY METHOD 07/25/2024 11:01 AM [facility] ALT (SGPT) 49 10 - 60 unit/L LAB CHEMISTRY METHOD 07/25/2024 11:01 AM [facility] Alkaline Phosphatase 107 42 - 121 unit/L LAB CHEMISTRY METHOD 07/25/2024 11:01 AM [facility] Total Protein 8.0 6.0 - 8.0 g/dL LAB CHEMISTRY METHOD 07/25/2024 11:01 AM [facility] Albumin 4.3 3.2 - 5.0 g/dL LAB CHEMISTRY METHOD 07/25/2024 11:01 AM [facility] Total Bilirubin 0.6 0.0 - 1.4 mg/dL LAB CHEMISTRY METHOD 07/25/2024 11:01 AM [facility] Blood Venous blood specimen / Unknown Venipuncture / Unknown 07/25/2024 10:04 AM EST 07/25/2024 10:36 AM EST us Rikki Mccann MD LAB BLOOD ORDERABLES Final Res ult [facility] [address] [place] [address], documented in this encounter Visit Diagnoses Diagnosis Migraine without status migrainosus, not intractable, unspecified migraine type- Primary Hypertension, unspecified type documented in this encounter Administered Medications Inactive Administered Medications - up to 3 most recent administrations Medication Order MAR Action Action Date Dose Rate Site ketorolac (TORADOL) injection 15 mg 15 mg, intravenous, Once, On Tue07/25/24 at 1209, For 1 dose Given 07/25/2024 12:58 PM EST 15 mg LORazepam (ATIVAN) injection 1 mg 1 mg, intravenous, Once, On Tue07/25/24 at 0956, For 1 dose, Prior to IV use, lorazepam injection should be DILUTED with an equal volume of compatible solution; Rate of administration should NOT exceed 2 mg/min. Given 07/25/2024 10:13 AM EST 1 mg documented in this encounter Active and Recently Administered Medications Times are shown in EST. Scheduled Medication Order 07/23/2024 07/24/2024 07/25/2024 ketorolac (TORADOL) injection 15 mg (COMPLETED) 15 mg, intravenous, Once, On Tue07/25/24 at 1209, For 1 dose 1258 (Given - Provid er: Rhoda Paul RN) LORazepam (ATIVAN) injection 1 mg (COMPLETED) 1 mg, intravenous, Once, On Tue07/25/24 at 0956, For 1 dose, Prior to IV use, lorazepam injection should be DILUTED with an equal volume of compatible solution; Rate of administration should NOT exceed 2 mg/min. 1013 (Given - Provid er: Elisha eMndoza RN) documented in this encounter Care Teams Bioinformatics Associate Relationship Specialty Start Date End Date Jr Contreras MD [address] [place] [address] PCP - General Internal Medicine 01/29/22 documented as of this encounter
== END 2024-07-31 10:26 | disposition home or self-care (01) ==
PROVIDERS: PCP Internal Medicine; Visit Provider Nurse Practitioner Family
DX: G44.53 Primary thunderclap headache (principal); G43.109 Migraine with aura, not intractable, without status migrainosus; R25.2 Cramp and spasm; G47.8 Other sleep disorders
CPT/HCPCS: 99214

== ENCOUNTER → 2024-07-31 09:11 | Outpatient (BNVA) | payer MEDICAID, SELFPAY | PROVIDERS: PCP Internal Medicine; Visit Provider Nurse Practitioner Family | DX: G44.53 Primary thunderclap headache (principal); G43.109 Migraine with aura, not intractable, without status migrainosus; G47.8 Other sleep disorders; R25.2 Cramp and spasm | CPT/HCPCS: 99212 ==